=== PATIENT | female | born 1940 | race Caucasian/White ===

== ENCOUNTER 2017-11-01 13:20 | Emergency (ER) | payer MEDICARE, BC ==
--- NOTE | 2017-11-01 13:52 | EDM.PDOC ---
ED HPI GENERAL MEDICAL PROBLEM - General Chief Complaint: Respiratory Problem Stated Complaint: [id number] UPPER RESP PROBLEMS Time Seen by Provider: 11/01/17 13:52 Source of Information: Reports: Patient, RN, RN Notes Reviewed History Limitations: Reports: No Limitations - History of Present Illness INITIAL COMMENTS - FREE TEXT/NARRATIVE: C/O congestion with sinus pain and pressure x1 week. Not improving with OTC medications. Admits to dry cough and sensation of postnasal drip. Denies fever, but feels flushed at times. Denies shortness of breath. Onset: Gradual Duration: Constant, Getting Worse Location: Reports: Head, Face Quality: Reports: Ache, Pressure Severity: Moderate Improves with: Reports: None Worsens with: Reports: None Associated Symptoms: Reports: No Other Symptoms Treatments [employer]: Reports: Acetaminophen, Home Treatments, Other Medication(s) - Related Data Allergies Allergy/AdvReac Type Severity Reaction Status Date / Time No Known Allergies Allergy Verified 11/01/17 13:38 Home Meds: Home Meds Clopidogrel Bisulfate [Clopidogrel] 75 mg PO DAILY 11/01/17 [History] Escitalopram [Lexapro] 20 mg PO DAILY 11/01/17 [History] Levothyroxine [Synthroid] 50 mcg PO DAILY 11/01/17 [History] Losartan/Hydrochlorothiazide [Losartan-HCTZ 100-12.5 MG] 1 tab PO DAILY [History] Omeprazole [Omeprazole] 20 mg PO DAILY 11/01/17 [History] Rosuvastatin Calcium [Rosuvastatin Calcium] 15 mg PO QID 11/01/17 [History] Zolpidem Tartrate [Zolpidem Tartrate] 5 mg PO BEDTIME 11/01/17 [History] Past Medical History Cardiovascular History: Reports: CAD, High Cholesterol, Hypertension Gastrointestinal History: Reports: GERD Endocrine/Metabolic History: Reports: Hypothyroidism Social & Family History - Family History Family Medical History: Noncontributory - Tobacco Use Smoking Status *Q: Current Every Day Smoker Years of Tobacco use: 40 Packs/Tins Daily: 0.5 - Caffeine Use Caffeine Use: Reports: Soda - Alcohol Use Days Per Week of Alcohol Use: 7 Number of Drinks Per Day: 1 Total Drinks Per Week: 7 - Recreational Drug Use Recreational Drug Use: No - Living Situation & Occupation Occupation: Retired ED ROS GENERAL - Review of Systems Review Of Systems: ROS reveals no pertinent complaints other than HPI. ED EXAM, GENERAL - Physical Exam Exam: See Below Exam Limited By: No Limitations General Appearance: Alert, WD/WN, No Apparent Distress Eye Exam: Bilateral Eye: EOMI, Normal Inspection, PERRL Ears: Normal External Exam, Normal Canal, Hearing Grossly Normal, Other (dull TMs B/L) Nose: Nasal Drainage (injected tubinates, inflammed nasal mucosa, thich purulent sinus drainage) Head: Sinus Tenderness (B/L frontal and maxillary) Neck: Normal Inspection, Supple, Non-Tender, Full Range of Motion. No: Lymphadenopathy (L), Lymphadenopathy (R) Respiratory/Chest: No Respiratory Distress, Lungs Clear, Normal Breath Sounds, No Accessory Muscle Use, Chest Non-Tender, Other (dry cough, mild). No: Rales, Rhonchi, Wheezing Cardiovascular: Normal Peripheral Pulses, Regular Rate, Rhythm, No Edema, No Gallop, No JVD, No Murmur, No Rub Back Exam: Normal Inspection Extremities: Normal Inspection, Non-Tender, No Pedal Edema Neurological: Alert, Oriented, CN II-XII Intact, Normal Cognition, Normal Gait, No Motor/Sensory Deficits Skin Exam: Warm, Dry, Intact, Normal Color, No Rash Course - Vital Signs Last Recorded V/S: Last Vital Signs Temp 35.9 C 11/01/17 13:35 Pulse 79 11/01/17 13:35 Resp 16 11/01/17 13:35 BP 126/65 11/01/17 13:35 Pulse Ox 99 11/01/17 13:35 Departure - Departure Time of Disposition: 14:14 Disposition: Home, Self-Care 01 Condition: Good Clinical Impression: Sinusitis Qualifiers: Sinusitis location: unspecified location Chronicity: acute Recurrence: non- recurrent Qualified Code(s): J01.90 - Acute sinusitis, unspecified - Discharge Information Instructions: Sinusitis, Adult, [id number] Forms: ED Department Discharge Additional Instructions: Use saline nasal spray until symptoms completely improve. Saltwater gargles as needed for sore throat or postnasal drip. Follow up in clinic if not improved in 5 to 7 days.
== END 2017-11-01 14:23 | disposition home or self-care (01) ==
LOC: DL.ED 13:20
DX: J01.90 Acute sinusitis, unspecified (principal); I10 Essential (primary) hypertension; I25.10 Atherosclerotic heart disease of native coronary artery without angina pectoris; E78.00 Pure hypercholesterolemia, unspecified; K21.9 Gastro-esophageal reflux disease without esophagitis; E03.9 Hypothyroidism, unspecified; F17.210 Nicotine dependence, cigarettes, uncomplicated; Z79.899 Other long term (current) drug therapy; Z79.02 Long term (current) use of antithrombotics/antiplatelets
CPT/HCPCS: 99282; 99283

== ENCOUNTER 2021-11-02 14:16 | Inpatient (IN) | payer MEDICARE, BC ==
[2021-11-02 15:30] LABS: CORONAVIRUS COVID-19 NAA NEGATIVE (NEGATIVE)
[2021-11-02] MEDS ORDERED: methylPREDNISolone Sodium Succinate 125 MG/2 ML SDV IVPUSH ONE (16:47)
[2021-11-02] MEDS ORDERED: Sodium Chloride 0.9% 10 ML Syringe FLUSH PRN (16:47)
[2021-11-02] MEDS ORDERED: Albuterol/Ipratropium 3.0-0.5 MG/3 ML Neb Soln NEB ONE (16:47)
[2021-11-02 17:49] LABS: PTT,PARTIAL THROMBOPLSTIN TIME 25.6 SEC (22.0-34.0)
[2021-11-02 18:16] LABS: ANION GAP 14.4 mEq/L (7-13); CHLORIDE,CL 102 mmol/L (98-107); SODIUM,NA 140 mmol/L (136-145)
[2021-11-02] MEDS ORDERED: Aspirin 81 MG Tab.Chew PO ONE (18:29)
[2021-11-02] MEDS ORDERED: Heparin Sodium 5,000 Units/ML Vial IVPUSH ONE (18:31)
[2021-11-02] MEDS ORDERED: Heparin Sodium/0.45% NaCl 25,000 UNITS/500 ML BAG IV SCH ×2 (18:45→20:45)
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
--- NOTE | 2021-11-02 18:54 | CR ---
PROCEDURE INFORMATION: Exam: XR Chest Exam date and time: 11/02/2021 6:23 PM Age: 81 years old Clinical indication: Cough; Additional info: Cough, dyspnea TECHNIQUE: Imaging protocol: XR of the chest. Views: 2 views. COMPARISON: No relevant prior studies available. FINDINGS: Airway: Patent Lungs: Unremarkable. No consolidation. Pleural spaces: Unremarkable. No pleural effusion. No pneumothorax. Heart/Mediastinum: Unremarkable. No cardiomegaly. Vasculature: Calcified aortic knob. Bones/joints: No acute skeletal abnormality or aggressive osseous lesion. IMPRESSION: NEGATIVE FOR ACUTE THORACIC PATHOLOGY.
[2021-11-02] MEDS ORDERED: Aspirin 81 MG Tab.Chew ONE ×2 (19:17→19:18)
[2021-11-02] MEDS ORDERED: Nitroglycerin 0.4 MG Tab.SL SL PRN (20:37)
--- NOTE | 2021-11-02 20:58 | PCM.HP ---
H&P History of Present Illness - General Date of Service: 11/02/21 Admit Problem/Dx: Admission Diagnosis/Problem Admission Diagnosis/Problem Non-ST elevation (NSTEMI) myocardial infarction Source of Information: Patient, EMS - History of Present Illness Initial Comments - Free Text/Narative: Patient is a 81-year-old female with a past medical history of CVA, hyperlipidemia, hypothyroidism, anxiety pression, hypertension, prior tobacco use who presented with dyspnea with exertion. Patient states that she is noticed worsening shortness of breath with activity over the last 3 weeks. She states that she went down to see her brother in [place] and noticed ever since that time she has had worsening dyspnea with even mild exertion. States that she had issues with her medications and had not taken her Plavix in 3 weeks. Patient states that she has Plavix from a prior CVA. She denies any chest pains or pressures, denies abdominal pain, nausea or vomiting. Patient states that when she is resting she is overall chest pain-free and is not of any dyspnea. Patient arrived emergency department she is hemodynamically stable. Laboratory studies included a WBC of 10.8, hemoglobin of 14.5, platelet count of 303, normal coagulation studies, sodium 140, potassium 4.4, creatinine 1.14, negative D-dimer. High sensitive troponin I 66. COVID-19 testing was negative. Chest x-ray showed no acute findings. EKG showed sinus tachycardia with right bundle branch block, findings of prior inferior infarct with inverted T waves especially noted in three and aVF, significant inverted T waves in the precordial leads V1 through V4. I do not have a prior to compare. Patient was given a bolus of heparin started heparin drip, given 324 aspirin and request was made for hospitalization for further monitoring of troponins. Patient states that she has a "bad time taking medications ". She currently states that she does not ever sleep laying down and has had maybe worsening of some orthopnea over the last several days. Again denies any current chest pains or pressures, palpitations and states she overall feels well when she is sitting at rest. Denies any fevers or chills. Patient denies any prior cardiac history including stents or NSTEMI's. States he does have a family history of hypertension hyperlipidemia and heart disease. - Related Data Allergies/Adverse Reactions: Allergies Allergy/AdvReac Type Severity Reaction Status Date / Time No Known Allergies Allergy Verified 12/06/17 13:38 Home Medications: Home Meds Clopidogrel Bisulfate [Clopidogrel] 75 mg PO DAILY 11/01/17 [History] Escitalopram [Lexapro] 20 mg PO BID 11/01/17 [History] Levothyroxine [Synthroid] 50 mcg PO DAILY 11/01/17 [History] Losartan/Hydrochlorothiazide [Losartan-HCTZ 100-12.5 MG] 1 tab PO DAILY 11/01/17 [History] Omeprazole 20 mg PO DAILY 11/01/17 [History] Rosuvastatin Calcium 40 mg PO DAILY 11/01/17 [History] Zolpidem Tartrate 5 mg PO BEDTIME 11/01/17 [History] buPROPion HCL [Wellbutrin Xl] 1 tab PO ASDIRECTED 11/02/21 [History] Past Medical History Cardiovascular History: Reports: CAD, High Cholesterol, Hypertension Gastrointestinal History: Reports: GERD Endocrine/Metabolic History: Reports: Hypothyroidism Social & Family History - Family History Family Medical History: No Pertinent Family History - Tobacco Use Tobacco Use Status *Q: Former Tobacco User Used Tobacco, but Quit: Yes Month/Year Tobacco Last Used: 06/2021 - Caffeine Use Caffeine Use: Reports: Soda - Recreational Drug Use Recreational Drug Use: No - Living Situation & Occupation Occupation: Retired H&P Review of Systems - Review of Systems: Review Of Systems: Comprehensive ROS is negative, except as noted in HPI. Exam - Exam Exam: See Below - Vital Signs Vital Signs: Last Vital Signs Temp 97.3 F 11/02/21 19:34 Pulse 78 11/02/21 19:34 Resp 20 11/02/21 19:34 BP 138/87 11/02/21 19:34 Pulse Ox 94 L 11/02/21 19:34 Weight: 186 lb - Exam General: Alert, Oriented HEENT: Conjunctiva Clear, Mucosa Moist & [place], PERRLA Neck: Supple, Trachea Midline Lungs: Clear to Auscultation, Wheezing (very mild end expiratory wheezing) Cardiovascular: Regular Rate, Regular Rhythm, Normal S1, Normal S2 GI/Abdominal Exam: Normal Bowel Sounds, Soft Back Exam: Normal Inspection Extremities: Normal Inspection Peripheral Pulses: 2+: Radial (L), Radial (R) Skin: Warm, Dry, Intact Neurological: Cranial Nerves Intact, Reflexes Equal Bilateral Neuro Extensive - Mental Status: Alert, Oriented x3 - Patient Data Lab Results Last 24 hrs: Laboratory Results - last 24 hr 11/02/21 11/02/21 11/02/21 Range/Units 14:35 17:06 17:06 WBC 10.8 H (5.0-10.0) 10^3/uL RBC 4.65 (4.2-5.4) 10^6/uL Hgb 14.5 (12.0-16.0) g/dL Hct 45.3 (37.0-47.0) % MCV 97.4 (80-100) fL MCH 31.2 (27.0-34.0) pg MCHC 32.0 L (33.0-35.0) g/dL Plt Count 303 (150-450) 10^3/uL Neut % (Auto) 66.9 (42.2-75.2) % Lymph % (Auto) 18.8 L (20.5-50.1) % [place] % (Auto) 7.0 (2-8) % Eos % (Auto) 6.9 H (1.0-3.0) % Baso % (Auto) 0.4 (0.0-1.0) % PT (9.0-12.0) SEC INR (0.9-1.2) APTT (22.0-34.0) SEC D-Dimer, Quantitative 179 (0-400) ng/mL Sodium (136-145) mmol/L Potassium (3.5-5.1) mmol/L Chloride (98-107) mmol/L Carbon Dioxide (21-32) mmol/L Anion Gap (7-13) mEq/L BUN (7-18) mg/dL Creatinine (0.55-1.02) mg/dL Est Cr Clr Drug Dosing Estimated GFR (MDRD) BUN/Creatinine Ratio (No establ ref range) Glucose (70-99) mg/dL Lactic Acid (0.4-2.0) mmol/L Calcium (8.5-10.1) mg/dL Total Bilirubin (0.2-1.0) mg/dL AST (15-37) U/L ALT (14-59) U/L Alkaline Phosphatase (46-116) U/L Troponin I High Sens (<=51) pg/mL B-Natriuretic Peptide (0-100) pg/ml Total Protein (6.4-8.2) g/dL Albumin (3.4-5.0) g/dL Globulin Albumin/Globulin Ratio Influenza Type A RNA Negative (NEGATIVE) Influenza Type B RNA Negative (NEGATIVE) SARS-CoV-2 RNA (CARMELITA) Negative (NEGATIVE) 11/02/21 11/02/21 11/02/21 Range/Units 17:06 17:06 17:06 WBC (5.0-10.0) 10^3/uL RBC (4.2-5.4) 10^6/uL Hgb (12.0-16.0) g/dL Hct (37.0-47.0) % MCV (80-100) fL MCH (27.0-34.0) pg MCHC (33.0-35.0) g/dL Plt Count (150-450) 10^3/uL Neut % (Auto) (42.2-75.2) % Lymph % (Auto) (20.5-50.1) % [place] % (Auto) (2-8) % Eos % (Auto) (1.0-3.0) % Baso % (Auto) (0.0-1.0) % PT 9.9 (9.0-12.0) SEC INR 1.0 (0.9-1.2) APTT 25.6 (22.0-34.0) SEC D-Dimer, Quantitative (0-400) ng/mL Sodium 140 (136-145) mmol/L Potassium 4.4 (3.5-5.1) mmol/L Chloride 102 (98-107) mmol/L Carbon Dioxide 28 (21-32) mmol/L Anion Gap 14.4 H (7-13) mEq/L BUN 20 H (7-18) mg/dL Creatinine 1.14 H (0.55-1.02) mg/dL Est Cr Clr Drug Dosing TNP Estimated GFR (MDRD) 46 BUN/Creatinine Ratio 17.5 (No establ ref range) Glucose 102 H (70-99) mg/dL Lactic Acid 1.1 (0.4-2.0) mmol/L Calcium 9.5 (8.5-10.1) mg/dL Total Bilirubin 0.7 (0.2-1.0) mg/dL AST 27 (15-37) U/L ALT 37 (14-59) U/L Alkaline Phosphatase 87 (46-116) U/L Troponin I High Sens 166 H* (<=51) pg/mL B-Natriuretic Peptide 69 (0-100) pg/ml Total Protein 8.2 (6.4-8.2) g/dL Albumin 4.0 (3.4-5.0) g/dL Globulin 4.2 Albumin/Globulin Ratio 1.0 Influenza Type A RNA (NEGATIVE) Influenza Type B RNA (NEGATIVE) SARS-CoV-2 RNA (CARMELITA) (NEGATIVE) Result Diagrams: 11/02/21 17:06 11/02/21 17:06 - Problem List (1) Anxiety SNOMED Code(s): 92984315 ICD Code: F41.9 - ANXIETY DISORDER, UNSPECIFIED Status: Acute Current Visit: Yes (2) HTN (hypertension) SNOMED Code(s): 78620569 ICD Code: I10 - ESSENTIAL (PRIMARY) HYPERTENSION Status: Acute Current Visit: Yes (3) HLD (hyperlipidemia) SNOMED Code(s): 57212907 ICD Code: E78.5 - HYPERLIPIDEMIA, UNSPECIFIED Status: Acute Current Visit: Yes (4) Hypothyroid SNOMED Code(s): 20233694 ICD Code: E03.9 - HYPOTHYROIDISM, UNSPECIFIED Status: Acute Current Visit: Yes (5) Dyspnea on exertion SNOMED Code(s): 30574202 ICD Code: R06.00 - DYSPNEA, UNSPECIFIED Status: Acute Current Visit: No (6) Non-STEMI (non-ST elevated myocardial infarction) SNOMED Code(s): 88568445 ICD Code: I21.4 - NON-ST ELEVATION (NSTEMI) MYOCARDIAL INFARCTION Status: Acute Current Visit: No Problem List Initiated/Reviewed/Updated: Yes Orders Last 24hrs: Active Orders 24 hr Category Date Time Status Admission Diagnosis [ADT] Stat ADT 11/02/21 19:07 Ordered Admission Status [Patient Status] [ADT] Routine ADT 11/02/21 19:07 Active Cardiac Education [RC] Click to Edit Care 11/02/21 20:37 Active Cardiac Monitoring [RC] . DIRECTED Care 11/02/21 20:37 Active Peripheral IV Care [RC] . DIRECTED Care 11/02/21 16:48 Active RT Aerosol Therapy [RC] ASDIRECTED Care 11/02/21 16:47 Active CULTURE BLOOD [BC] Stat Lab 11/02/21 17:06 Received CULTURE BLOOD [BC] Stat Lab 11/02/21 18:02 Received Aspirin Med 11/03/21 09:00 Ordered 81 mg PO DAILY Heparin Sodium/0.45% NaCl [Heparin 25,000 Units in 1/2 Med 11/02/21 20:45 Ordered NS 500 ML] 25,000 units in 500 ml IV TITRATE Metoprolol Tartrate [Lopressor] Med 11/02/21 20:45 Ordered 25 mg PO Q12H Nitroglycerin [Nitrostat] Med 11/02/21 20:37 Ordered 0.4 mg SL Q5M PRN Sodium Chloride 0.9% [Saline Flush] Med 11/02/21 16:47 Active 10 ml FLUSH ASDIRECTED PRN Blood Culture x2 Reflex Set [OM.PC] Stat Oth 11/02/21 16:46 Ordered Peripheral IV Insertion Adult [OM.PC] Stat Oth 11/02/21 16:47 Ordered Medication Orders Aspirin (Aspirin 81 Mg Tab.Chew) 81 mg PO DAILY ESAU Heparin Sodium/Sodium Chloride (Heparin 25,000 Units In 1/2 Ns 500 Ml) 25,000 units in 500 mls @ 33.747 mls/hr IV TITRATE ESAU; Protocol Metoprolol Tartrate (Metoprolol Tartrate 25 Mg Tab) 25 mg PO Q12H ESAU Nitroglycerin (Nitroglycerin 0.4 Mg Tab.Sl) 0.4 mg SL Q5M PRN PRN Reason: Chest Pain Stop: 11/03/21 20:38 Sodium Chloride (Sodium Chloride 0.9% 10 Ml Syringe) 10 ml FLUSH ASDIRECTED PRN PRN Reason: Keep Vein Open Last Admin: 11/02/21 17:33 Dose: 10 ml Documented by: [email or web address] Assessment/Plan Comment:: Patient is 81-year-old female with a past medical history of prior CVA, hypertension, hyperlipidemia, prior tobacco use who presented with dyspnea with exertion was found to have elevated troponins. # NSTEMI -[place] troponin 166, patient is not having any typical chest pain but is having significant increased dyspnea on exertion. Patient did have a slight elevated white count at 10.8 although no infectious symptoms, patient symptoms most concerning for ischemia -chest x-ray with no concerning findings - negative d dimer -EKG showed concerning findings for ischemia including T wave inversions inferior and precordial leads -Heparin drip, aspirin, metoprolol, PAZ inhibitor, statin -We will trend troponins every 6 hours -Telemetry monitoring, do not of the abilities to obtain a TTE but recommend TTE during admission for evaluation of wall motion abnormalities -N.p.o. midnight #Chronic medical conditions #Anxiety/depressioncontinue Wellbutrin and #Hypertensioncontinue losartan hydrochlorothiazide Fluidsnone Electrolyteswithin normal limits DietGeneral, n.p.o. at midnight
[2021-11-02] MEDS ORDERED: Zolpidem 5 MG Tab PO SCH (21:15)
[2021-11-02] MEDS: Metoprolol Tartrate 25 MG Tab PO SCH (22:44)
--- NOTE | 2021-11-03 00:25 | PCM.PN ---
- General Info Date of Service: 11/03/21 Admission Dx/Problem (Free Text): Admission Diagnosis/Problem Admission Diagnosis/Problem Non-ST elevation (NSTEMI) myocardial infarction Subjective Update: Patient states that she overall feels stable. Denies any dyspnea while lying down but still some dyspnea with exertion when walking around. Denies any chest pains, arm pain, jaw pain. Denies any nausea, vomiting, diaphoresis. States that she would accept transfer and is open to further testing including an angiogram. Review systems is negative except as listed above. Functional Status: Reports: Pain Controlled - Patient Data Vitals - Most Recent: Last Vital Signs Temp 97.6 F 11/02/21 20:23 Pulse 77 11/02/21 22:44 Resp 18 11/02/21 20:23 BP 147/77 H 11/02/21 22:44 Pulse Ox 98 11/02/21 20:23 Weight - Most Recent: 188 lb 1.6 oz Lab Results Last 24 Hours: Laboratory Results - last 24 hr 11/02/21 11/02/21 11/02/21 Range/Units 14:35 17:06 17:06 WBC 10.8 H (5.0-10.0) 10^3/uL RBC 4.65 (4.2-5.4) 10^6/uL Hgb 14.5 (12.0-16.0) g/dL Hct 45.3 (37.0-47.0) % MCV 97.4 (80-100) fL MCH 31.2 (27.0-34.0) pg MCHC 32.0 L (33.0-35.0) g/dL Plt Count 303 (150-450) 10^3/uL Neut % (Auto) 66.9 (42.2-75.2) % Lymph % (Auto) 18.8 L (20.5-50.1) % [place] % (Auto) 7.0 (2-8) % Eos % (Auto) 6.9 H (1.0-3.0) % Baso % (Auto) 0.4 (0.0-1.0) % PT (9.0-12.0) SEC INR (0.9-1.2) APTT (22.0-34.0) SEC D-Dimer, Quantitative 179 (0-400) ng/mL Sodium (136-145) mmol/L Potassium (3.5-5.1) mmol/L Chloride (98-107) mmol/L Carbon Dioxide (21-32) mmol/L Anion Gap (7-13) mEq/L BUN (7-18) mg/dL Creatinine (0.55-1.02) mg/dL Est Cr Clr Drug Dosing Estimated GFR (MDRD) BUN/Creatinine Ratio (No establ ref range) Glucose (70-99) mg/dL Lactic Acid (0.4-2.0) mmol/L Calcium (8.5-10.1) mg/dL Total Bilirubin (0.2-1.0) mg/dL AST (15-37) U/L ALT (14-59) U/L Alkaline Phosphatase (46-116) U/L Troponin I High Sens (<=51) pg/mL B-Natriuretic Peptide (0-100) pg/ml Total Protein (6.4-8.2) g/dL Albumin (3.4-5.0) g/dL Globulin Albumin/Globulin Ratio Influenza Type A RNA Negative (NEGATIVE) Influenza Type B RNA Negative (NEGATIVE) SARS-CoV-2 RNA (CARMELITA) Negative (NEGATIVE) 11/02/21 11/02/21 11/02/21 Range/Units 17:06 17:06 17:06 WBC (5.0-10.0) 10^3/uL RBC (4.2-5.4) 10^6/uL Hgb (12.0-16.0) g/dL Hct (37.0-47.0) % MCV (80-100) fL MCH (27.0-34.0) pg MCHC (33.0-35.0) g/dL Plt Count (150-450) 10^3/uL Neut % (Auto) (42.2-75.2) % Lymph % (Auto) (20.5-50.1) % [place] % (Auto) (2-8) % Eos % (Auto) (1.0-3.0) % Baso % (Auto) (0.0-1.0) % PT 9.9 (9.0-12.0) SEC INR 1.0 (0.9-1.2) APTT 25.6 (22.0-34.0) SEC D-Dimer, Quantitative (0-400) ng/mL Sodium 140 (136-145) mmol/L Potassium 4.4 (3.5-5.1) mmol/L Chloride 102 (98-107) mmol/L Carbon Dioxide 28 (21-32) mmol/L Anion Gap 14.4 H (7-13) mEq/L BUN 20 H (7-18) mg/dL Creatinine 1.14 H (0.55-1.02) mg/dL Est Cr Clr Drug Dosing TNP Estimated GFR (MDRD) 46 BUN/Creatinine Ratio 17.5 (No establ ref range) Glucose 102 H (70-99) mg/dL Lactic Acid 1.1 (0.4-2.0) mmol/L Calcium 9.5 (8.5-10.1) mg/dL Total Bilirubin 0.7 (0.2-1.0) mg/dL AST 27 (15-37) U/L ALT 37 (14-59) U/L Alkaline Phosphatase 87 (46-116) U/L Troponin I High Sens 166 H* (<=51) pg/mL B-Natriuretic Peptide 69 (0-100) pg/ml Total Protein 8.2 (6.4-8.2) g/dL Albumin 4.0 (3.4-5.0) g/dL Globulin 4.2 Albumin/Globulin Ratio 1.0 Influenza Type A RNA (NEGATIVE) Influenza Type B RNA (NEGATIVE) SARS-CoV-2 RNA (CARMELITA) (NEGATIVE) 11/02/21 Range/Units 23:10 WBC (5.0-10.0) 10^3/uL RBC (4.2-5.4) 10^6/uL Hgb (12.0-16.0) g/dL Hct (37.0-47.0) % MCV (80-100) fL MCH (27.0-34.0) pg MCHC (33.0-35.0) g/dL Plt Count (150-450) 10^3/uL Neut % (Auto) (42.2-75.2) % Lymph % (Auto) (20.5-50.1) % [place] % (Auto) (2-8) % Eos % (Auto) (1.0-3.0) % Baso % (Auto) (0.0-1.0) % PT (9.0-12.0) SEC INR (0.9-1.2) APTT (22.0-34.0) SEC D-Dimer, Quantitative (0-400) ng/mL Sodium (136-145) mmol/L Potassium (3.5-5.1) mmol/L Chloride (98-107) mmol/L Carbon Dioxide (21-32) mmol/L Anion Gap (7-13) mEq/L BUN (7-18) mg/dL Creatinine (0.55-1.02) mg/dL Est Cr Clr Drug Dosing Estimated GFR (MDRD) BUN/Creatinine Ratio (No establ ref range) Glucose (70-99) mg/dL Lactic Acid (0.4-2.0) mmol/L Calcium (8.5-10.1) mg/dL Total Bilirubin (0.2-1.0) mg/dL AST (15-37) U/L ALT (14-59) U/L Alkaline Phosphatase (46-116) U/L Troponin I High Sens 161 H* (<=51) pg/mL B-Natriuretic Peptide (0-100) pg/ml Total Protein (6.4-8.2) g/dL Albumin (3.4-5.0) g/dL Globulin Albumin/Globulin Ratio Influenza Type A RNA (NEGATIVE) Influenza Type B RNA (NEGATIVE) SARS-CoV-2 RNA (CARMELITA) (NEGATIVE) Med Orders - Current: Current Medications Aspirin (Aspirin 81 Mg Tab.Chew) 81 mg PO DAILY [facility] Bupropion HCl (Bupropion 150 Mg Tab.Er) 150 mg PO SuTuThSa@0900 [facility] Bupropion HCl (Bupropion 150 Mg Tab.Er) 300 mg PO MoWeFr@0900 [facility] Escitalopram Oxalate (Escitalopram 10 Mg Tab) 20 mg PO BID [facility] Hydrochlorothiazide (Hydrochlorothiazide 25 Mg Tab) 12.5 mg PO DAILY [facility] Heparin Sodium/Sodium Chloride (Heparin 25,000 Units In 1/2 Ns 500 Ml) 25,000 units in 500 mls @ 33.747 mls/hr IV TITRATE ESAU; Protocol Levothyroxine Sodium (Levothyroxine 50 Mcg Tab) 50 mcg PO ACBREAKFAST [facility] Losartan Potassium (Losartan 50 Mg Tab) 100 mg PO DAILY [facility] Metoprolol Tartrate (Metoprolol Tartrate 25 Mg Tab) 25 mg PO Q12H ESAU Last Admin: 11/02/21 22:44 Dose: 25 mg Documented by: Nitroglycerin (Nitroglycerin 0.4 Mg Tab.Sl) 0.4 mg SL Q5M PRN PRN Reason: Chest Pain Stop: 11/03/21 20:38 Omeprazole (Omeprazole 20 Mg Cap.Cr) 20 mg PO DAILY E[facility] Rosuvastatin Calcium (Rosuvastatin 10 Mg Tab) 40 mg PO DAILY [facility] Sodium Chloride (Sodium Chloride 0.9% 10 Ml Syringe) 10 ml FLUSH ASDIRECTED PRN PRN Reason: Keep Vein Open Last Admin: 11/02/21 17:33 Dose: 10 ml Documented by: Zolpidem Tartrate (Zolpidem 5 Mg Tab) 5 mg PO BEDTIME [facility] Last Admin: 11/02/21 22:44 Dose: 5 mg Documented by: Discontinued Medications Albuterol/Ipratropium (Albuterol/Ipratropium 3.0-0.5 Mg/3 Ml Neb Soln) 3 ml NEB ONETIME ONE Stop: 11/02/21 16:48 Last Admin: 11/02/21 17:13 Dose: 3 ml Documented by: Aspirin (Aspirin 81 Mg Tab.Chew) 324 mg PO ONETIME ONE Stop: 11/02/21 18:30 Last Admin: 11/02/21 19:20 Dose: 324 mg Documented by: Aspirin (Aspirin 81 Mg Tab.Chew) Confirm Administered Dose 324 mg .ROUTE .STK- MED ONE Stop: 11/02/21 19:18 Last Admin: 11/02/21 19:38 Dose: Not Given Documented by: Aspirin (Aspirin 81 Mg Tab.Chew) Confirm Administered Dose 324 mg .ROUTE .STK- MED ONE Stop: 11/02/21 19:19 Last Admin: 11/02/21 19:38 Dose: Not Given Documented by: Heparin Sodium (Porcine) (Heparin Sodium 5,000 Units/Ml Vial) 60 units IVPUSH .BOLUS ONE; Protocol Stop: 11/02/21 18:32 Last Admin: 11/02/21 19:28 Dose: 4,000 units Documented by: Heparin Sodium/Sodium Chloride (Heparin 25,000 Units In 1/2 Ns 500 Ml) 25,000 units in 500 mls @ 20 mls/hr IV TITRATE ESAU; Protocol Last Admin: 11/02/21 19:28 Dose: 20.2 mls/hr Documented by: Methylprednisolone Sodium Succinate (Methylprednisolone Sodium Succinate 125 Mg/2 Ml Sdv) 125 mg IVPUSH ONETIME ONE Stop: 11/02/21 16:48 Last Admin: 11/02/21 17:33 Dose: 125 mg Documented by: Zolpidem Tartrate (Zolpidem 5 Mg Tab) 5 mg PO BEDTIME ESAU - Exam General: Alert, Oriented HEENT: Pupils Equal, Pupils Reactive Neck: Supple Lungs: Normal Respiratory Effort Cardiovascular: Regular Rate, Regular Rhythm GI/Abdominal Exam: Normal Bowel Sounds, Soft Extremities: Normal Inspection Peripheral Pulses: 2+: Radial (L), Radial (R) Skin: Warm, Dry Wound/Incisions: Healing Well Neurological: No New Focal Deficit Psy/Mental Status: Alert, Normal Affect - Patient Data Lab Results Last 24 hrs: Laboratory Results - last 24 hr 11/02/21 11/02/21 11/02/21 Range/Units 14:35 17:06 17:06 WBC 10.8 H (5.0-10.0) 10^3/uL RBC 4.65 (4.2-5.4) 10^6/uL Hgb 14.5 (12.0-16.0) g/dL Hct 45.3 (37.0-47.0) % MCV 97.4 (80-100) fL MCH 31.2 (27.0-34.0) pg MCHC 32.0 L (33.0-35.0) g/dL Plt Count 303 (150-450) 10^3/uL Neut % (Auto) 66.9 (42.2-75.2) % Lymph % (Auto) 18.8 L (20.5-50.1) % [place] % (Auto) 7.0 (2-8) % Eos % (Auto) 6.9 H (1.0-3.0) % Baso % (Auto) 0.4 (0.0-1.0) % PT (9.0-12.0) SEC INR (0.9-1.2) APTT (22.0-34.0) SEC D-Dimer, Quantitative 179 (0-400) ng/mL Sodium (136-145) mmol/L Potassium (3.5-5.1) mmol/L Chloride (98-107) mmol/L Carbon Dioxide (21-32) mmol/L Anion Gap (7-13) mEq/L BUN (7-18) mg/dL Creatinine (0.55-1.02) mg/dL Est Cr Clr Drug Dosing Estimated GFR (MDRD) BUN/Creatinine Ratio (No establ ref range) Glucose (70-99) mg/dL Lactic Acid (0.4-2.0) mmol/L Calcium (8.5-10.1) mg/dL Total Bilirubin (0.2-1.0) mg/dL AST (15-37) U/L ALT (14-59) U/L Alkaline Phosphatase (46-116) U/L Troponin I High Sens (<=51) pg/mL B-Natriuretic Peptide (0-100) pg/ml Total Protein (6.4-8.2) g/dL Albumin (3.4-5.0) g/dL Globulin Albumin/Globulin Ratio Influenza Type A RNA Negative (NEGATIVE) Influenza Type B RNA Negative (NEGATIVE) SARS-CoV-2 RNA (CARMELITA) Negative (NEGATIVE) 11/02/21 11/02/21 11/02/21 Range/Units 17:06 17:06 17:06 WBC (5.0-10.0) 10^3/uL RBC (4.2-5.4) 10^6/uL Hgb (12.0-16.0) g/dL Hct (37.0-47.0) % MCV (80-100) fL MCH (27.0-34.0) pg MCHC (33.0-35.0) g/dL Plt Count (150-450) 10^3/uL Neut % (Auto) (42.2-75.2) % Lymph % (Auto) (20.5-50.1) % [place] % (Auto) (2-8) % Eos % (Auto) (1.0-3.0) % Baso % (Auto) (0.0-1.0) % PT 9.9 (9.0-12.0) SEC INR 1.0 (0.9-1.2) APTT 25.6 (22.0-34.0) SEC D-Dimer, Quantitative (0-400) ng/mL Sodium 140 (136-145) mmol/L Potassium 4.4 (3.5-5.1) mmol/L Chloride 102 (98-107) mmol/L Carbon Dioxide 28 (21-32) mmol/L Anion Gap 14.4 H (7-13) mEq/L BUN 20 H (7-18) mg/dL Creatinine 1.14 H (0.55-1.02) mg/dL Est Cr Clr Drug Dosing TNP Estimated GFR (MDRD) 46 BUN/Creatinine Ratio 17.5 (No establ ref range) Glucose 102 H (70-99) mg/dL Lactic Acid 1.1 (0.4-2.0) mmol/L Calcium 9.5 (8.5-10.1) mg/dL Total Bilirubin 0.7 (0.2-1.0) mg/dL AST 27 (15-37) U/L ALT 37 (14-59) U/L Alkaline Phosphatase 87 (46-116) U/L Troponin I High Sens 166 H* (<=51) pg/mL B-Natriuretic Peptide 69 (0-100) pg/ml Total Protein 8.2 (6.4-8.2) g/dL Albumin 4.0 (3.4-5.0) g/dL Globulin 4.2 Albumin/Globulin Ratio 1.0 Influenza Type A RNA (NEGATIVE) Influenza Type B RNA (NEGATIVE) SARS-CoV-2 RNA (CARMELITA) (NEGATIVE) 11/02/21 Range/Units 23:10 WBC (5.0-10.0) 10^3/uL RBC (4.2-5.4) 10^6/uL Hgb (12.0-16.0) g/dL Hct (37.0-47.0) % MCV (80-100) fL MCH (27.0-34.0) pg MCHC (33.0-35.0) g/dL Plt Count (150-450) 10^3/uL Neut % (Auto) (42.2-75.2) % Lymph % (Auto) (20.5-50.1) % [place] % (Auto) (2-8) % Eos % (Auto) (1.0-3.0) % Baso % (Auto) (0.0-1.0) % PT (9.0-12.0) SEC INR (0.9-1.2) APTT (22.0-34.0) SEC D-Dimer, Quantitative (0-400) ng/mL Sodium (136-145) mmol/L Potassium (3.5-5.1) mmol/L Chloride (98-107) mmol/L Carbon Dioxide (21-32) mmol/L Anion Gap (7-13) mEq/L BUN (7-18) mg/dL Creatinine (0.55-1.02) mg/dL Est Cr Clr Drug Dosing Estimated GFR (MDRD) BUN/Creatinine Ratio (No establ ref range) Glucose (70-99) mg/dL Lactic Acid (0.4-2.0) mmol/L Calcium (8.5-10.1) mg/dL Total Bilirubin (0.2-1.0) mg/dL AST (15-37) U/L ALT (14-59) U/L Alkaline Phosphatase (46-116) U/L Troponin I High Sens 161 H* (<=51) pg/mL B-Natriuretic Peptide (0-100) pg/ml Total Protein (6.4-8.2) g/dL Albumin (3.4-5.0) g/dL Globulin Albumin/Globulin Ratio Influenza Type A RNA (NEGATIVE) Influenza Type B RNA (NEGATIVE) SARS-CoV-2 RNA (CARMELITA) (NEGATIVE) Result Diagrams: 11/02/21 17:06 11/02/21 17:06 Sepsis Event Note - Evaluation Sepsis Screening Result: No Definite Risk - Focused Exam Vital Signs: Vital Signs Temp Pulse Pulse Resp BP BP Pulse Ox 11/02/21 22:44 77 147/77 H 11/02/21 20:23 97.6 F 77 18 147/77 H 98 11/02/21 19:34 97.3 F 78 20 138/87 94 L 11/02/21 17:13 72 11/02/21 14:35 90 22 H 93 L - Problem List & Annotations (1) Anxiety SNOMED Code(s): 19344447 Code(s): F41.9 - ANXIETY DISORDER, UNSPECIFIED Status: Acute Current Visit: Yes (2) HTN (hypertension) SNOMED Code(s): 35541298 Code(s): I10 - ESSENTIAL (PRIMARY) HYPERTENSION Status: Acute Current Visit: Yes (3) HLD (hyperlipidemia) SNOMED Code(s): 83553549 Code(s): E78.5 - HYPERLIPIDEMIA, UNSPECIFIED Status: Acute Current Visit: Yes (4) Hypothyroid SNOMED Code(s): 35540447 Code(s): E03.9 - HYPOTHYROIDISM, UNSPECIFIED Status: Acute Current Visit: Yes (5) Dyspnea on exertion SNOMED Code(s): 45541247 Code(s): R06.00 - DYSPNEA, UNSPECIFIED Status: Acute Current Visit: No (6) Non-STEMI (non-ST elevated myocardial infarction) SNOMED Code(s): 07062210 Code(s): I21.4 - NON-ST ELEVATION (NSTEMI) MYOCARDIAL INFARCTION Status: Acute Current Visit: No - Problem List Review Problem List Initiated/Reviewed/Updated: Yes - My Orders Last 24 Hours: My Active Orders 11/02/21 20:37 Cardiac Education [RC] Click to Edit Cardiac Monitoring [RC] . DIRECTED Nitroglycerin [Nitrostat] 0.4 mg SL Q5M PRN 11/02/21 20:45 Heparin Sodium/0.45% NaCl [Heparin 25,000 Units in 1/2 NS 500 ML] 25,000 units in 500 ml IV TITRATE Metoprolol Tartrate [Lopressor] 25 mg PO Q12H 11/02/21 21:15 Zolpidem [Ambien] 5 mg PO BEDTIME 11/03/21 01:30 PTT,PARTIAL THROMBOPLSTIN TIME [COAG] Routine 11/03/21 05:00 TROPONIN I HIGH SENSITIVITY [CHEM] Routine 11/03/21 06:00 Levothyroxine [Synthroid] 50 mcg PO ACBREAKFAST 11/03/21 09:00 Aspirin 81 mg PO DAILY Escitalopram [Lexapro] 20 mg PO BID Losartan [Cozaar] 100 mg PO DAILY Omeprazole 20 mg PO DAILY Rosuvastatin [Crestor] 40 mg PO DAILY buPROPion [Wellbutrin XL] 300 mg PO MoWeFr@0900 hydroCHLOROthiazide 12.5 mg PO DAILY 11/04/21 09:00 buPROPion [Wellbutrin XL] 150 mg PO SuTuThSa@0900 - Plan Plan:: Patient is 81-year-old female with a past medical history of prior CVA, hypertension, hyperlipidemia, prior tobacco use who presented with dyspnea with exertion was found to have elevated troponins. # NSTEMI -[place] troponin 166, patient is not having any typical chest pain but is having significant increased dyspnea on exertion. Patient did have a slight elevated white count at 10.8 although no infectious symptoms, patient symptoms most concerning for ischemia -chest x-ray with no concerning findings - negative d dimer -EKG showed concerning findings for ischemia including T wave inversions inferior and precordial leads -Heparin drip, aspirin, metoprolol, PAZ inhibitor, statin -High-sensitivity troponin [id number], discussion had with cardiology at [place] who recommended transfer for TTE and possible coronary angiogram -N.p.o. #Chronic medical conditions #Anxiety/depressioncontinue Wellbutrin and #Hypertensioncontinue losartan hydrochlorothiazide Fluidsnone Electrolyteswithin normal limits DietGeneral, n.p.o. Patient to transfer to outside facility for cardiology consultation.
[2021-11-03] MEDS ORDERED: Levothyroxine 50 MCG Tab PO SCH (06:00)
[2021-11-03] MEDS ORDERED: Losartan 50 MG Tab PO SCH (09:00)
[2021-11-03] MEDS ORDERED: Aspirin 81 MG Tab.Chew PO SCH (09:00)
[2021-11-03] MEDS ORDERED: buPROPion 150 MG Tab.ER PO SCH (09:00)
[2021-11-03] MEDS ORDERED: Omeprazole 20 MG Cap.CR PO SCH (09:00)
[2021-11-03] MEDS ORDERED: Hydrochlorothiazide 25 MG Tab PO SCH (09:00)
[2021-11-03] MEDS ORDERED: Escitalopram 10 MG Tab PO SCH (09:00)
[2021-11-03] MEDS ORDERED: Rosuvastatin 10 MG Tab PO SCH (09:00)
[2021-11-03] MEDS: Metoprolol Tartrate 25 MG Tab PO SCH (09:33)
--- NOTE | 2021-11-03 10:30 | PCM.DCSUM1 ---
Discharge Summary - Hospital Course Free Text/Narrative:: Patient is a 81-year-old female with a past medical history of CVA, hyperlipidemia, hypothyroidism, anxiety pression, hypertension, prior tobacco use who presented with dyspnea with exertion. Patient states that she is noticed worsening shortness of breath with activity over the last 3 weeks. She states that she went down to see her brother in [place] and noticed ever since that time she has had worsening dyspnea with even mild exertion. States that she had issues with her medications and had not taken her Plavix in 3 weeks. Patient states that she has Plavix from a prior CVA. She denies any chest pains or pressures, denies abdominal pain, nausea or vomiting. Patient states that when she is resting she is overall chest pain-free and is not of any dyspnea. Patient arrived emergency department she is hemodynamically stable. Laboratory studies included a WBC of 10.8, hemoglobin of 14.5, platelet count of 303, normal coagulation studies, sodium 140, potassium 4.4, creatinine 1.14, negative D-dimer. High sensitive troponin I 66. COVID-19 testing was negative. Chest x-ray showed no acute findings. EKG showed sinus tachycardia with right bundle branch block, findings of prior inferior infarct with inverted T waves especially noted in three and aVF, significant inverted T waves in the precordial leads V1 through V4. I do not have a prior to compare. Patient was given a bolus of heparin started heparin drip, given 324 aspirin and request was made for hospitalization for further monitoring of troponins. Patient states that she has a "bad time taking medications ". She currently states that she does not ever sleep laying down and has had maybe worsening of some orthopnea over the last several days. Again denies any current chest pains or pressures, palpitations and states she overall feels well when she is sitting at rest. Denies any fevers or chills. Patient denies any prior cardiac history including stents or NSTEMI's. States he does have a family history of hypertension hyperlipidemia and heart disease. Patient was admitted for further evaluation was placed on guideline directed therapy with a heparin drip, PAZ inhibitor, statin, beta-tiffayn, aspirin. Patient was monitored on telemetry and had no arrhythmias. Patient continued to have dyspnea with exertion but no chest pains or pressures, no dyspnea at rest. High-sensitivity troponin was trended and was 1 66-1 61-1 37. Given that patient still having dyspnea with exertion and her findings of NSTEMI discussion was had with line construction engineer at [facility] Dr. Taylor who recommended transfer for TTE and possible coronary angiogram. He also recommended admission through the emergency department. Discussions had with emergency room physician Jesus Lamar who acce will transfer patient via ALS with heparin drip and cardiac monitoring. Patient was medically stable at time of transfer. - Discharge Data Discharge Date: 11/03/21 Discharge Disposition: DC/Tfer to Acute Hospital 02 Condition: Stable - Referral to Home Health Primary Care Physician: PCP None - Discharge Diagnosis/Problem(s) (1) Anxiety SNOMED Code(s): 49877533 ICD Code: F41.9 - ANXIETY DISORDER, UNSPECIFIED Status: Acute Current Visit: Yes (2) HTN (hypertension) SNOMED Code(s): 84785557 ICD Code: I10 - ESSENTIAL (PRIMARY) HYPERTENSION Status: Acute Current Visit: Yes (3) HLD (hyperlipidemia) SNOMED Code(s): 77653080 ICD Code: E78.5 - HYPERLIPIDEMIA, UNSPECIFIED Status: Acute Current Visit: Yes (4) Hypothyroid SNOMED Code(s): 24924453 ICD Code: E03.9 - HYPOTHYROIDISM, UNSPECIFIED Status: Acute Current Visit: Yes (5) Dyspnea on exertion SNOMED Code(s): 59307850 ICD Code: R06.00 - DYSPNEA, UNSPECIFIED Status: Acute Current Visit: No (6) Non-STEMI (non-ST elevated myocardial infarction) SNOMED Code(s): 88399312 ICD Code: I21.4 - NON-ST ELEVATION (NSTEMI) MYOCARDIAL INFARCTION Status: Acute Current Visit: No - Patient Instructions Diet: NPO - Discharge Plan *PRESCRIPTION DRUG MONITORING PROGRAM REVIEWED*: Not Applicable *COPY OF PRESCRIPTION DRUG MONITORING REPORT IN PATIENT MIKEY: Not Applicable Home Medications: Home Meds Clopidogrel Bisulfate [Clopidogrel] 75 mg PO DAILY 11/01/17 [History] Escitalopram [Lexapro] 20 mg PO BID 11/01/17 [History] Levothyroxine [Synthroid] 50 mcg PO DAILY 11/01/17 [History] Losartan/Hydrochlorothiazide [Losartan-HCTZ 100-12.5 MG] 1 tab PO DAILY 11/01/17 [History] Omeprazole 20 mg PO DAILY 11/01/17 [History] Rosuvastatin Calcium 40 mg PO DAILY 11/01/17 [History] Zolpidem Tartrate 5 mg PO BEDTIME 11/01/17 [History] buPROPion HCL [Wellbutrin Xl] 1 tab PO ASDIRECTED 11/02/21 [History] Forms: ED Department Discharge Referrals: PCP,None [Primary Care Provider] - - Discharge Summary/Plan Comment DC Time >30 min.: Yes Total # of Minutes for Discharge Time: 30 minutes - Patient Data Vitals - Most Recent: Last Vital Signs Temp 98.1 F 11/03/21 08:08 Pulse 64 11/03/21 09:33 Resp 20 11/03/21 08:08 BP 132/86 11/03/21 09:33 Pulse Ox 93 L 11/03/21 08:08 Weight - Most Recent: 188 lb 1.6 oz Lab Results - Last 24 hrs: Laboratory Results - last 24 hr 11/02/21 11/02/21 11/02/21 Range/Units 14:35 17:06 17:06 WBC 10.8 H (5.0-10.0) 10^3/uL RBC 4.65 (4.2-5.4) 10^6/uL Hgb 14.5 (12.0-16.0) g/dL Hct 45.3 (37.0-47.0) % MCV 97.4 (80-100) fL MCH 31.2 (27.0-34.0) pg MCHC 32.0 L (33.0-35.0) g/dL Plt Count 303 (150-450) 10^3/uL Neut % (Auto) 66.9 (42.2-75.2) % Lymph % (Auto) 18.8 L (20.5-50.1) % [place] % (Auto) 7.0 (2-8) % Eos % (Auto) 6.9 H (1.0-3.0) % Baso % (Auto) 0.4 (0.0-1.0) % PT (9.0-12.0) SEC INR (0.9-1.2) APTT (22.0-34.0) SEC D-Dimer, Quantitative 179 (0-400) ng/mL Sodium (136-145) mmol/L Potassium (3.5-5.1) mmol/L Chloride (98-107) mmol/L Carbon Dioxide (21-32) mmol/L Anion Gap (7-13) mEq/L BUN (7-18) mg/dL Creatinine (0.55-1.02) mg/dL Est Cr Clr Drug Dosing Estimated GFR (MDRD) BUN/Creatinine Ratio (No establ ref range) Glucose (70-99) mg/dL Lactic Acid (0.4-2.0) mmol/L Calcium (8.5-10.1) mg/dL Total Bilirubin (0.2-1.0) mg/dL AST (15-37) U/L ALT (14-59) U/L Alkaline Phosphatase (46-116) U/L Troponin I High Sens (<=51) pg/mL B-Natriuretic Peptide (0-100) pg/ml Total Protein (6.4-8.2) g/dL Albumin (3.4-5.0) g/dL Globulin Albumin/Globulin Ratio Influenza Type A RNA Negative (NEGATIVE) Influenza Type B RNA Negative (NEGATIVE) SARS-CoV-2 RNA (CARMELITA) Negative (NEGATIVE) 11/02/21 11/02/21 11/02/21 Range/Units 17:06 17:06 17:06 WBC (5.0-10.0) 10^3/uL RBC (4.2-5.4) 10^6/uL Hgb (12.0-16.0) g/dL Hct (37.0-47.0) % MCV (80-100) fL MCH (27.0-34.0) pg MCHC (33.0-35.0) g/dL Plt Count (150-450) 10^3/uL Neut % (Auto) (42.2-75.2) % Lymph % (Auto) (20.5-50.1) % [place] % (Auto) (2-8) % Eos % (Auto) (1.0-3.0) % Baso % (Auto) (0.0-1.0) % PT 9.9 (9.0-12.0) SEC INR 1.0 (0.9-1.2) APTT 25.6 (22.0-34.0) SEC D-Dimer, Quantitative (0-400) ng/mL Sodium 140 (136-145) mmol/L Potassium 4.4 (3.5-5.1) mmol/L Chloride 102 (98-107) mmol/L Carbon Dioxide 28 (21-32) mmol/L Anion Gap 14.4 H (7-13) mEq/L BUN 20 H (7-18) mg/dL Creatinine 1.14 H (0.55-1.02) mg/dL Est Cr Clr Drug Dosing TNP Estimated GFR (MDRD) 46 BUN/Creatinine Ratio 17.5 (No establ ref range) Glucose 102 H (70-99) mg/dL Lactic Acid 1.1 (0.4-2.0) mmol/L Calcium 9.5 (8.5-10.1) mg/dL Total Bilirubin 0.7 (0.2-1.0) mg/dL AST 27 (15-37) U/L ALT 37 (14-59) U/L Alkaline Phosphatase 87 (46-116) U/L Troponin I High Sens 166 H* (<=51) pg/mL B-Natriuretic Peptide 69 (0-100) pg/ml Total Protein 8.2 (6.4-8.2) g/dL Albumin 4.0 (3.4-5.0) g/dL Globulin 4.2 Albumin/Globulin Ratio 1.0 Influenza Type A RNA (NEGATIVE) Influenza Type B RNA (NEGATIVE) SARS-CoV-2 RNA (CARMELITA) (NEGATIVE) 11/02/21 11/03/21 11/03/21 Range/Units 23:10 01:35 08:05 WBC (5.0-10.0) 10^3/uL RBC (4.2-5.4) 10^6/uL Hgb (12.0-16.0) g/dL Hct (37.0-47.0) % MCV (80-100) fL MCH (27.0-34.0) pg MCHC (33.0-35.0) g/dL Plt Count (150-450) 10^3/uL Neut % (Auto) (42.2-75.2) % Lymph % (Auto) (20.5-50.1) % [place] % (Auto) (2-8) % Eos % (Auto) (1.0-3.0) % Baso % (Auto) (0.0-1.0) % PT (9.0-12.0) SEC INR (0.9-1.2) APTT 71.3 H (22.0-34.0) SEC D-Dimer, Quantitative (0-400) ng/mL Sodium (136-145) mmol/L Potassium (3.5-5.1) mmol/L Chloride (98-107) mmol/L Carbon Dioxide (21-32) mmol/L Anion Gap (7-13) mEq/L BUN (7-18) mg/dL Creatinine (0.55-1.02) mg/dL Est Cr Clr Drug Dosing Estimated GFR (MDRD) BUN/Creatinine Ratio (No establ ref range) Glucose (70-99) mg/dL Lactic Acid (0.4-2.0) mmol/L Calcium (8.5-10.1) mg/dL Total Bilirubin (0.2-1.0) mg/dL AST (15-37) U/L ALT (14-59) U/L Alkaline Phosphatase (46-116) U/L Troponin I High Sens 161 H* 137 H* (<=51) pg/mL B-Natriuretic Peptide (0-100) pg/ml Total Protein (6.4-8.2) g/dL Albumin (3.4-5.0) g/dL Globulin Albumin/Globulin Ratio Influenza Type A RNA (NEGATIVE) Influenza Type B RNA (NEGATIVE) SARS-CoV-2 RNA (CARMELITA) (NEGATIVE) 11/03/21 Range/Units 08:05 WBC (5.0-10.0) 10^3/uL RBC (4.2-5.4) 10^6/uL Hgb (12.0-16.0) g/dL Hct (37.0-47.0) % MCV (80-100) fL MCH (27.0-34.0) pg MCHC (33.0-35.0) g/dL Plt Count (150-450) 10^3/uL Neut % (Auto) (42.2-75.2) % Lymph % (Auto) (20.5-50.1) % [place] % (Auto) (2-8) % Eos % (Auto) (1.0-3.0) % Baso % (Auto) (0.0-1.0) % PT (9.0-12.0) SEC INR (0.9-1.2) APTT 50.4 H (22.0-34.0) SEC D-Dimer, Quantitative (0-400) ng/mL Sodium (136-145) mmol/L Potassium (3.5-5.1) mmol/L Chloride (98-107) mmol/L Carbon Dioxide (21-32) mmol/L Anion Gap (7-13) mEq/L BUN (7-18) mg/dL Creatinine (0.55-1.02) mg/dL Est Cr Clr Drug Dosing Estimated GFR (MDRD) BUN/Creatinine Ratio (No establ ref range) Glucose (70-99) mg/dL Lactic Acid (0.4-2.0) mmol/L Calcium (8.5-10.1) mg/dL Total Bilirubin (0.2-1.0) mg/dL AST (15-37) U/L ALT (14-59) U/L Alkaline Phosphatase (46-116) U/L Troponin I High Sens (<=51) pg/mL B-Natriuretic Peptide (0-100) pg/ml Total Protein (6.4-8.2) g/dL Albumin (3.4-5.0) g/dL Globulin Albumin/Globulin Ratio Influenza Type A RNA (NEGATIVE) Influenza Type B RNA (NEGATIVE) SARS-CoV-2 RNA (CARMELITA) (NEGATIVE) Med Orders - Current: Current Medications Aspirin (Aspirin 81 Mg Tab.Chew) 81 mg PO DAILY [facility] Last Admin: 11/03/21 09:25 Dose: 81 mg Documented by: Bupropion HCl (Bupropion 150 Mg Tab.Er) 150 mg PO SuTuThSa@0900 [facility] Bupropion HCl (Bupropion 150 Mg Tab.Er) 300 mg PO MoWeFr@0900 [facility] Last Admin: 11/03/21 09:29 Dose: 300 mg Documented by: Escitalopram Oxalate (Escitalopram 10 Mg Tab) 20 mg PO BID [facility] Last Admin: 11/03/21 09:32 Dose: 20 mg Documented by: Hydrochlorothiazide (Hydrochlorothiazide 25 Mg Tab) 12.5 mg PO DAILY [facility] Last Admin: 11/03/21 09:30 Dose: 12.5 mg Documented by: Heparin Sodium/Sodium Chloride (Heparin 25,000 Units In 1/2 Ns 500 Ml) 25,000 units in 500 mls @ 33.747 mls/hr IV TITRATE [facility]; Protocol Levothyroxine Sodium (Levothyroxine 50 Mcg Tab) 50 mcg PO ACBREAKFAST [facility] Last Admin: 11/03/21 06:11 Dose: 50 mcg Documented by: Losartan Potassium (Losartan 50 Mg Tab) 100 mg PO DAILY [facility] Last Admin: 11/03/21 09:31 Dose: 100 mg Documented by: Metoprolol Tartrate (Metoprolol Tartrate 25 Mg Tab) 25 mg PO Q12H [facility] Last Admin: 11/03/21 09:33 Dose: 25 mg Documented by: Nitroglycerin (Nitroglycerin 0.4 Mg Tab.Sl) 0.4 mg SL Q5M PRN PRN Reason: Chest Pain Stop: 11/03/21 20:38 Omeprazole (Omeprazole 20 Mg Cap.Cr) 20 mg PO DAILY [facility] Last Admin: 11/03/21 09:27 Dose: 20 mg Documented by: Rosuvastatin Calcium (Rosuvastatin 10 Mg Tab) 40 mg PO DAILY [facility] Last Admin: 11/03/21 09:25 Dose: 40 mg Documented by: Sodium Chloride (Sodium Chloride 0.9% 10 Ml Syringe) 10 ml FLUSH ASDIRECTED PRN PRN Reason: Keep Vein Open Last Admin: 11/02/21 17:33 Dose: 10 ml Documented by: Zolpidem Tartrate (Zolpidem 5 Mg Tab) 5 mg PO BEDTIME [facility] Last Admin: 11/02/21 22:44 Dose: 5 mg Documented by: Discontinued Medications Albuterol/Ipratropium (Albuterol/Ipratropium 3.0-0.5 Mg/3 Ml Neb Soln) 3 ml NEB ONETIME ONE Stop: 11/02/21 16:48 Last Admin: 11/02/21 17:13 Dose: 3 ml Documented by: Aspirin (Aspirin 81 Mg Tab.Chew) 324 mg PO ONETIME ONE Stop: 11/02/21 18:30 Last Admin: 11/02/21 19:20 Dose: 324 mg Documented by: Aspirin (Aspirin 81 Mg Tab.Chew) Confirm Administered Dose 324 mg .ROUTE .STK- MED ONE Stop: 11/02/21 19:18 Last Admin: 11/02/21 19:38 Dose: Not Given Documented by: Aspirin (Aspirin 81 Mg Tab.Chew) Confirm Administered Dose 324 mg .ROUTE .STK- MED ONE Stop: 11/02/21 19:19 Last Admin: 11/02/21 19:38 Dose: Not Given Documented by: Heparin Sodium (Porcine) (Heparin Sodium 5,000 Units/Ml Vial) 60 units IVPUSH .BOLUS ONE; Protocol Stop: 11/02/21 18:32 Last Admin: 11/02/21 19:28 Dose: 4,000 units Documented by: Heparin Sodium/Sodium Chloride (Heparin 25,000 Units In 1/2 Ns 500 Ml) 25,000 units in 500 mls @ 20 mls/hr IV TITRATE [facility]; Protocol Last Titration: 11/03/21 02:32 Dose: 16.7 mls/hr Documented by: Methylprednisolone Sodium Succinate (Methylprednisolone Sodium Succinate 125 Mg/2 Ml Sdv) 125 mg IVPUSH ONETIME ONE Stop: 11/02/21 16:48 Last Admin: 11/02/21 17:33 Dose: 125 mg Documented by: Zolpidem Tartrate (Zolpidem 5 Mg Tab) 5 mg PO BEDTIME [facility]
[2021-11-03] MEDS ORDERED: Zolpidem 5 MG Tab PO SCH (21:00)
[2021-11-03] MEDS ORDERED: Non-Formulary Medication 1 Each (Zolpidem Tartrate 10 MG Tablet) PO SCH (21:00)
[2021-11-04] MEDS ORDERED: buPROPion 150 MG Tab.ER PO SCH (09:00)
== END 2021-11-03 11:00 | DRG 282 ==
LOC: DL.ED 14:16 → DL.MS 19:07
PROVIDERS: ADMIT Internal Medicine; ATTEND Internal Medicine
PROC: 3E0234Z Introduction of Serum, Toxoid and Vaccine into Muscle, Percutaneous Approach (ICD-10-PCS; principal; 2021-11-02)
DX: I21.4 Non-ST elevation (NSTEMI) myocardial infarction (principal); R06.09 Other forms of dyspnea; F41.9 Anxiety disorder, unspecified; I10 Essential (primary) hypertension; E78.5 Hyperlipidemia, unspecified; D21.9 Benign neoplasm of connective and other soft tissue, unspecified; E03.9 Hypothyroidism, unspecified; Z20.822 Contact with and (suspected) exposure to COVID-19; I25.10 Atherosclerotic heart disease of native coronary artery without angina pectoris; E78.00 Pure hypercholesterolemia, unspecified; Z79.899 Other long term (current) drug therapy; K21.9 Gastro-esophageal reflux disease without esophagitis; Z86.73 Personal history of transient ischemic attack (TIA), and cerebral infarction without residual deficits; Z87.891 Personal history of nicotine dependence; Z79.890 Hormone replacement therapy; Z23 Encounter for immunization; Z79.02 Long term (current) use of antithrombotics/antiplatelets
CPT/HCPCS: 0240U; 36415; 71046; 80053; 83605; 83880; 84484; 85025; 85379; 85610; 85730; 87040; 93005; 94640; 96374; 99285-25; A9270-GY; J1644; J2930; J7620-GY

== ENCOUNTER 2022-04-19 12:59 | Emergency (ER) | payer MEDICARE, BC ==
[2022-04-19 15:19] LABS: ANION GAP 15.7 mEq/L (7-13)
== END 2022-04-19 17:10 | disposition left against medical advice (07) ==
LOC: DL.ED 12:59
DX: R06.02 Shortness of breath (principal); I25.10 Atherosclerotic heart disease of native coronary artery without angina pectoris; E78.00 Pure hypercholesterolemia, unspecified; K21.9 Gastro-esophageal reflux disease without esophagitis; E03.9 Hypothyroidism, unspecified; I10 Essential (primary) hypertension; Z86.73 Personal history of transient ischemic attack (TIA), and cerebral infarction without residual deficits; Z79.899 Other long term (current) drug therapy; Z87.891 Personal history of nicotine dependence
CPT/HCPCS: 36415; 80053; 83605; 84484; 85025; 99283; 99284

== ENCOUNTER 2023-12-19 07:28 | Inpatient (IN) | payer MEDICARE, BC ==
[~2023-12-19 07:28] MED LIST: Lactated Ringers 1,000 ML IV ONE; Ondansetron 4 MG/2 ML SDV IVPUSH ONE
[2023-12-19] MEDS ORDERED: Morphine 4 MG/ML Syringe IVPUSH ONE (07:29)
[2023-12-19 08:00] LABS: BASOPHILS PERCENT AUTO 0.2 % (0.0-1.0); EOSINOPHILS PERCENT AUTO 0.7 % (1.0-3.0); HEMATOCRIT 37.7 % (37.0-47.0); HEMOGLOBIN 12.3 g/dL (12.0-16.0); LYMPHOCYTES PERCENT AUTO 12.8 % (20.5-50.1); MEAN CORPUSCULAR HEMOGLOBIN 31.8 pg (27.0-34.0); MEAN CORPUSCULAR HGB CONC 32.6 g/dL (33.0-35.0); MEAN CORPUSCULAR VOLUME 97.4 fL (80-100); MONOCYTES PERCENT AUTO 4.8 % (2-8); NEUTROPHILS PERCENT AUTO 81.5 % (42.2-75.2); PLATELET COUNT,PLT 269 10^3/uL (150-450); RED BLOOD CELL COUNT 3.87 10^6/uL (4.2-5.4)
[2023-12-19 08:19] LABS: A/G RATIO 1.2; ALBUMIN 3.6 g/dL (3.4-5.0); BILIRUBIN TOTAL 0.3 mg/dL (0.2-1.0); CALCIUM 9.2 mg/dL (8.5-10.1); EST CRCL DRUG DOSING (CG) 47.71 mL/min; PROTEIN TOTAL,TP 6.7 g/dL (6.4-8.2)
[2023-12-19] MEDS ORDERED: Sodium Chloride 0.9% 10 ML Syringe FLUSH PRN (12:08)
[2023-12-19] MEDS ORDERED: Sennosides/Docusate Sodium 50-8.6 MG Tab PO PRN (12:08)
[2023-12-19] MEDS ORDERED: Albuterol/Ipratropium 3.0-0.5 MG/3 ML Neb Soln NEB PRN (12:08)
[2023-12-19] MEDS ORDERED: Polyethylene Glycol 3350 Powder 17 GM Packet PO PRN (12:08)
[2023-12-19] MEDS ORDERED: Magnesium Hydroxide 400 MG/5 ML Susp 30 ML Cup PO PRN (12:08)
[2023-12-19] MEDS ORDERED: Naloxone 2 MG/2 ML Syringe IVPUSH PRN (12:08)
[2023-12-19] MEDS ORDERED: Acetaminophen 325 MG Tab PO PRN (12:08)
[2023-12-19] MEDS ORDERED: Metoprolol Tartrate 5 MG/5 ML SDV IVPUSH PRN (12:12)
[2023-12-19] MEDS ORDERED: Pantoprazole 40 MG Vial IVPUSH ONE (12:12)
[2023-12-19] MEDS ORDERED: MVI, Adult with Vitamin K 10 ML, Folic Acid 1 MG, Thiamine 100 MG in Lactated Ringers 1... IV ONE ×4 (12:13)
[2023-12-19] MEDS: HYDROmorphone 0.5 MG/0.5 ML Syringe IVPUSH PRN ×3 (13:56→22:29)
[2023-12-19] MEDS: tiZANidine 4 MG Tab PO PRN ×2 (14:11→19:44)
[2023-12-19 15:03] LABS: TSH ULTRASENSITIVE 3.52 uIU/mL (0.36-3.74)
[2023-12-19] MEDS: Sodium Chloride 0.9% 10 ML Syringe FLUSH SCH (20:14)
[2023-12-19] MEDS: Acetaminophen/oxyCODONE 325-5 MG Tab PO PRN (22:28)
[2023-12-19] MEDS: Zolpidem 5 MG Tab PO PRN (22:33)
[2023-12-20] MEDS: HYDROmorphone 0.5 MG/0.5 ML Syringe IVPUSH PRN (05:04)
[2023-12-20] MEDS: tiZANidine 4 MG Tab PO PRN ×4 (05:06→23:37)
[2023-12-20] MEDS: Pantoprazole 40 MG Tab.CR PO SCH (05:07)
[2023-12-20] MEDS: Levothyroxine 25 MCG Tab PO SCH (05:07)
[2023-12-20 07:08] LABS: A/G RATIO 1.11; ALBUMIN 3.1 g/dL (3.4-5.0); ANION GAP 9.1 mEq/L (7-13); BILIRUBIN TOTAL 0.7 mg/dL (0.2-1.0); BUN/CREATININE RATIO 16.9 (No establ ref range); CALCIUM 8.3 mg/dL (8.5-10.1); CREATININE 1.48 mg/dL (0.55-1.02); EST CRCL DRUG DOSING (CG) 32.24 mL/min; MAGNESIUM 1.5 mg/dL (1.8-2.4); POTASSIUM,K 4.1 mmol/L (3.5-5.1); PROTEIN TOTAL,TP 5.9 g/dL (6.4-8.2)
[2023-12-20] MEDS ORDERED: Magnesium Sulfate/Water 2 GM in Premix Bag 1 BAG IV ONE (08:08)
[2023-12-20] MEDS ORDERED: Sodium Chloride 0.9% 1,000 ML IV SCH (08:15)
[2023-12-20] MEDS: Acetaminophen/oxyCODONE 325-5 MG Tab PO PRN ×3 (08:44→21:12)
[2023-12-20] MEDS: Clopidogrel 75 MG Tab PO SCH (08:45)
[2023-12-20] MEDS: Citalopram 20 MG Tab PO SCH (08:45)
[2023-12-20] MEDS: Dexamethasone 4 MG Tab PO SCH (08:45)
[2023-12-20] MEDS: Sodium Chloride 0.9% 10 ML Syringe FLUSH SCH ×2 (09:49→21:14)
[2023-12-20] MEDS: buPROPion 150 MG Tab.ER PO SCH (09:49)
[2023-12-20] MEDS: Aluminum Hydroxide/Magnesium Hydroxide/Simethicone Susp 30 ML Cup PO PRN (21:11)
[2023-12-20] MEDS: Zolpidem 5 MG Tab PO PRN (23:37)
[2023-12-21] MEDS: Pantoprazole 40 MG Tab.CR PO SCH ×2 (05:36→15:36)
[2023-12-21] MEDS: Levothyroxine 25 MCG Tab PO SCH (05:36)
[2023-12-21] MEDS: Acetaminophen/oxyCODONE 325-5 MG Tab PO PRN ×2 (05:41→10:20)
[2023-12-21 06:35] LABS: BASOPHILS PERCENT AUTO 0.1 % (0.0-1.0); EOSINOPHILS PERCENT AUTO 0.1 % (1.0-3.0); HEMATOCRIT 32.3 % (37.0-47.0); HEMOGLOBIN 10.2 g/dL (12.0-16.0); LYMPHOCYTES PERCENT AUTO 13.2 % (20.5-50.1); MEAN CORPUSCULAR HEMOGLOBIN 31.9 pg (27.0-34.0); MEAN CORPUSCULAR HGB CONC 31.6 g/dL (33.0-35.0); MEAN CORPUSCULAR VOLUME 100.9 fL (80-100); MONOCYTES PERCENT AUTO 8.3 % (2-8); NEUTROPHILS PERCENT AUTO 78.3 % (42.2-75.2); PLATELET COUNT,PLT 200 10^3/uL (150-450); WHITE BLOOD CELL COUNT,WBC 9.7 10^3/uL (5.0-10.0)
[2023-12-21 06:58] LABS: ANION GAP 12.6 mEq/L (7-13); BILIRUBIN TOTAL 0.7 mg/dL (0.2-1.0); BUN/CREATININE RATIO 19.5 (No establ ref range); CALCIUM 8.4 mg/dL (8.5-10.1); CREATININE 1.28 mg/dL (0.55-1.02); EST CRCL DRUG DOSING (CG) 37.28 mL/min; MAGNESIUM 2.1 mg/dL (1.8-2.4); POTASSIUM,K 4.6 mmol/L (3.5-5.1); PROTEIN TOTAL,TP 6.1 g/dL (6.4-8.2)
[2023-12-21 06:59] LABS: A/G RATIO 0.97
[2023-12-21] MEDS ORDERED: Lidocaine 5% 700 MG Patch TOP ONE (09:55)
[2023-12-21] MEDS ORDERED: Ibuprofen 200 MG Tab PO ONE (09:59)
[2023-12-21] MEDS ORDERED: Gabapentin 100 MG Cap PO ONE (10:01)
[2023-12-21] MEDS: buPROPion 150 MG Tab.ER PO SCH (10:19)
[2023-12-21] MEDS: Dexamethasone 4 MG Tab PO SCH (10:19)
[2023-12-21] MEDS: tiZANidine 4 MG Tab PO PRN (10:19)
[2023-12-21] MEDS: Clopidogrel 75 MG Tab PO SCH (10:19)
[2023-12-21] MEDS: Lidocaine 5% 700 MG Patch TOP SCH (10:20)
[2023-12-21] MEDS: Lactulose Soln 10 GM/15 ML 30 ML UD Cup PO SCH (10:20)
[2023-12-21] MEDS: Citalopram 20 MG Tab PO SCH (10:20)
[2023-12-21] MEDS: Sodium Chloride 0.9% 10 ML Syringe FLUSH SCH ×2 (10:21→21:01)
[2023-12-21] MEDS: Sodium Chloride 0.9% 1,000 ML IV SCH (10:38)
[2023-12-21] MEDS ORDERED: tiZANidine 4 MG Tab PO PRN (11:11)
[2023-12-21] MEDS: Ibuprofen 800 MG Tab PO SCH (21:03)
[2023-12-21] MEDS: Gabapentin 100 MG Cap PO SCH (21:05)
[2023-12-21] MEDS: tiZANidine 4 MG Tab PO SCH (21:05)
[2023-12-21] MEDS: Sennosides/Docusate Sodium 50-8.6 MG Tab PO SCH (21:05)
[2023-12-22] MEDS: Acetaminophen/oxyCODONE 325-5 MG Tab PO PRN (01:36)
[2023-12-22] MEDS: Levothyroxine 25 MCG Tab PO SCH (05:36)
[2023-12-22] MEDS: traMADol 50 MG Tab PO PRN (05:36)
[2023-12-22] MEDS: Pantoprazole 40 MG Tab.CR PO SCH ×2 (05:36→16:40)
[2023-12-22] MEDS: Sodium Chloride 0.9% 1,000 ML IV SCH (06:15)
[2023-12-22] MEDS ORDERED: Melatonin 3 MG Tab PO PRN (06:45)
[2023-12-22 07:31] LABS: HEMOGLOBIN A1C 5.3 % (<5.7)
[2023-12-22] MEDS: HYDROmorphone 0.5 MG/0.5 ML Syringe IVPUSH PRN (08:41)
[2023-12-22] MEDS: tiZANidine 4 MG Tab PO SCH ×2 (08:43→20:51)
[2023-12-22 08:54] LABS: ALBUMIN 3.2 g/dL (3.4-5.0); ANION GAP 15.1 mEq/L (7-13); BILIRUBIN TOTAL 0.5 mg/dL (0.2-1.0); BUN/CREATININE RATIO 22.7 (No establ ref range); CALCIUM 8.4 mg/dL (8.5-10.1); CREATININE 1.28 mg/dL (0.55-1.02); EST CRCL DRUG DOSING (CG) 37.28 mL/min; POTASSIUM,K 4.1 mmol/L (3.5-5.1); PROTEIN TOTAL,TP 6.7 g/dL (6.4-8.2)
[2023-12-22 08:55] LABS: A/G RATIO 0.91
[2023-12-22] MEDS: Lidocaine 5% 700 MG Patch TOP SCH (09:40)
[2023-12-22] MEDS: Lactulose Soln 10 GM/15 ML 30 ML UD Cup PO SCH (09:41)
[2023-12-22] MEDS: Citalopram 20 MG Tab PO SCH (09:41)
[2023-12-22] MEDS: Gabapentin 100 MG Cap PO SCH ×2 (09:41→20:50)
[2023-12-22] MEDS: Dexamethasone 4 MG Tab PO SCH (09:42)
[2023-12-22] MEDS: Clopidogrel 75 MG Tab PO SCH (09:42)
[2023-12-22] MEDS: Ibuprofen 600 MG Tab PO SCH ×2 (09:54→20:50)
[2023-12-22] MEDS: buPROPion 150 MG Tab.ER PO SCH (09:55)
[2023-12-22] MEDS: Ibuprofen 800 MG Tab PO SCH (10:22)
[2023-12-22] MEDS: Sodium Chloride 0.9% 10 ML Syringe FLUSH SCH ×2 (13:11→20:51)
[2023-12-22] MEDS: Bisacodyl 10 MG Supp RECTAL SCH (19:41)
[2023-12-22] MEDS: Sennosides/Docusate Sodium 50-8.6 MG Tab PO SCH (20:51)
[2023-12-22 23:41] LABS: 25-OH VITAMIN D2 <1.0 ng/mL; 25-OH VITAMIN D3 46.6 ng/mL
[2023-12-23] MEDS: HYDROmorphone 0.5 MG/0.5 ML Syringe IVPUSH PRN (03:00)
[2023-12-23] MEDS: Bisacodyl 10 MG Supp RECTAL SCH ×2 (05:20→18:11)
[2023-12-23] MEDS: Levothyroxine 25 MCG Tab PO SCH (05:21)
[2023-12-23] MEDS: Pantoprazole 40 MG Tab.CR PO SCH ×2 (05:21→16:30)
[2023-12-23] MEDS: Acetaminophen/oxyCODONE 325-5 MG Tab PO PRN ×2 (09:04→18:10)
[2023-12-23] MEDS: tiZANidine 4 MG Tab PO SCH ×2 (09:06→21:19)
[2023-12-23] MEDS: buPROPion 150 MG Tab.ER PO SCH (09:06)
[2023-12-23] MEDS: Citalopram 20 MG Tab PO SCH (09:06)
[2023-12-23] MEDS: Ibuprofen 600 MG Tab PO SCH ×2 (09:06→21:18)
[2023-12-23] MEDS: Gabapentin 100 MG Cap PO SCH ×2 (09:08→21:18)
[2023-12-23] MEDS: Clopidogrel 75 MG Tab PO SCH (09:08)
[2023-12-23] MEDS: Dexamethasone 4 MG Tab PO SCH (09:08)
[2023-12-23] MEDS: Lidocaine 5% 700 MG Patch TOP SCH (09:09)
[2023-12-23] MEDS: Sodium Chloride 0.9% 10 ML Syringe FLUSH SCH ×2 (09:09→21:19)
[2023-12-23] MEDS: Lactulose Soln 10 GM/15 ML 30 ML UD Cup PO SCH (09:09)
[2023-12-23] MEDS: Zolpidem 5 MG Tab PO PRN (21:18)
[2023-12-23] MEDS: Aluminum Hydroxide/Magnesium Hydroxide/Simethicone Susp 30 ML Cup PO PRN (21:19)
[2023-12-23] MEDS: Sennosides/Docusate Sodium 50-8.6 MG Tab PO SCH (21:19)
[2023-12-24] MEDS: Bisacodyl 10 MG Supp RECTAL SCH ×2 (05:40→17:10)
[2023-12-24] MEDS: Levothyroxine 25 MCG Tab PO SCH (05:40)
[2023-12-24] MEDS: Aluminum Hydroxide/Magnesium Hydroxide/Simethicone Susp 30 ML Cup PO PRN ×2 (05:41→13:30)
[2023-12-24] MEDS: traMADol 50 MG Tab PO PRN (05:41)
[2023-12-24] MEDS: Pantoprazole 40 MG Tab.CR PO SCH ×2 (05:41→16:22)
[2023-12-24 07:17] LABS: ALBUMIN 2.9 g/dL (3.4-5.0); ANION GAP 15.4 mEq/L (7-13); BILIRUBIN TOTAL 0.5 mg/dL (0.2-1.0); BUN/CREATININE RATIO 23.8 (No establ ref range); CALCIUM 8.8 mg/dL (8.5-10.1); CREATININE 1.05 mg/dL (0.55-1.02); EST CRCL DRUG DOSING (CG) 45.44 mL/min; POTASSIUM,K 4.4 mmol/L (3.5-5.1); PROTEIN TOTAL,TP 6.5 g/dL (6.4-8.2)
[2023-12-24 07:19] LABS: A/G RATIO 0.81
[2023-12-24] MEDS: Lactulose Soln 10 GM/15 ML 30 ML UD Cup PO SCH (08:49)
[2023-12-24] MEDS: Citalopram 20 MG Tab PO SCH (08:50)
[2023-12-24] MEDS: Gabapentin 100 MG Cap PO SCH ×2 (08:50→20:47)
[2023-12-24] MEDS: tiZANidine 4 MG Tab PO SCH ×2 (08:50→20:47)
[2023-12-24] MEDS: Acetaminophen/oxyCODONE 325-5 MG Tab PO PRN ×2 (08:50→20:46)
[2023-12-24] MEDS: Clopidogrel 75 MG Tab PO SCH (08:51)
[2023-12-24] MEDS: Ibuprofen 600 MG Tab PO SCH (08:52)
[2023-12-24] MEDS: Dexamethasone 4 MG Tab PO SCH (08:52)
[2023-12-24] MEDS: Lidocaine 5% 700 MG Patch TOP SCH (08:53)
[2023-12-24] MEDS: buPROPion 150 MG Tab.ER PO SCH (09:50)
[2023-12-24] MEDS ORDERED: Hydrochlorothiazide/Triamterene 25-37.5 Tab PO ONE (09:50)
[2023-12-24] MEDS: hydrALAZINE 20 MG/ML SDV IVPUSH PRN ×2 (10:27→20:41)
[2023-12-24] MEDS: Sodium Chloride 0.9% 10 ML Syringe FLUSH SCH ×2 (10:43→20:42)
[2023-12-24] MEDS: Sennosides/Docusate Sodium 50-8.6 MG Tab PO SCH (20:48)
[2023-12-24] MEDS: Zolpidem 5 MG Tab PO PRN (21:49)
[2023-12-25] MEDS: traMADol 50 MG Tab PO PRN (04:06)
[2023-12-25] MEDS: Bisacodyl 10 MG Supp RECTAL SCH (04:15)
[2023-12-25] MEDS: hydrALAZINE 20 MG/ML SDV IVPUSH PRN (05:07)
[2023-12-25] MEDS: Levothyroxine 25 MCG Tab PO SCH (05:11)
[2023-12-25] MEDS: Pantoprazole 40 MG Tab.CR PO SCH (05:11)
[2023-12-25 07:02] LABS: ALBUMIN 3.1 g/dL (3.4-5.0); ANION GAP 15.1 mEq/L (7-13); BILIRUBIN TOTAL 0.6 mg/dL (0.2-1.0); CALCIUM 9.2 mg/dL (8.5-10.1); EST CRCL DRUG DOSING (CG) 47.71 mL/min; POTASSIUM,K 4.1 mmol/L (3.5-5.1); PROTEIN TOTAL,TP 6.9 g/dL (6.4-8.2)
[2023-12-25 07:03] LABS: A/G RATIO 0.82
[2023-12-25] MEDS: Acetaminophen/oxyCODONE 325-5 MG Tab PO PRN ×2 (07:24→12:27)
[2023-12-25] MEDS ORDERED: hydrALAZINE 25 MG Tab PO SCH (09:00)
[2023-12-25] MEDS ORDERED: Hydrochlorothiazide/Triamterene 25-37.5 Tab PO SCH (09:00)
[2023-12-25] MEDS: Lidocaine 5% 700 MG Patch TOP SCH (09:53)
[2023-12-25] MEDS: Lactulose Soln 10 GM/15 ML 30 ML UD Cup PO SCH (09:56)
[2023-12-25] MEDS: Citalopram 20 MG Tab PO SCH (09:57)
[2023-12-25] MEDS: Clopidogrel 75 MG Tab PO SCH (09:59)
[2023-12-25] MEDS: Gabapentin 100 MG Cap PO SCH (09:59)
[2023-12-25] MEDS: Dexamethasone 4 MG Tab PO SCH (09:59)
[2023-12-25] MEDS: buPROPion 150 MG Tab.ER PO SCH (10:00)
[2023-12-25] MEDS: tiZANidine 4 MG Tab PO SCH (10:00)
[2023-12-25] MEDS: Sodium Chloride 0.9% 10 ML Syringe FLUSH SCH (10:05)
[2023-12-25] MEDS ORDERED: amLODIPine 5 MG Tab PO SCH (21:00)
== END 2023-12-25 14:09 | disposition swing bed (61) | DRG 552 ==
LOC: DL.ED 07:28 → DL.MS 11:17 → UNDOADMOB 11:17 → DL.MS 11:18 → INTOOBSV 12-20 11:09 → OBSVTOIN 12-20 11:09
PROVIDERS: ADMIT Internal Medicine; ATTEND Internal Medicine
DX: M54.9 Dorsalgia, unspecified (principal); I25.10 Atherosclerotic heart disease of native coronary artery without angina pectoris; J98.11 Atelectasis; N17.9 Acute kidney failure, unspecified; E78.5 Hyperlipidemia, unspecified; E03.9 Hypothyroidism, unspecified; K76.0 Fatty (change of) liver, not elsewhere classified; Z66 Do not resuscitate; Z79.02 Long term (current) use of antithrombotics/antiplatelets; Z96.653 Presence of artificial knee joint, bilateral; F32.9 Major depressive disorder, single episode, unspecified; G89.29 Other chronic pain; M19.90 Unspecified osteoarthritis, unspecified site; R73.9 Hyperglycemia, unspecified; M75.101 Unspecified rotator cuff tear or rupture of right shoulder, not specified as traumatic; R09.02 Hypoxemia; E86.0 Dehydration; I95.2 Hypotension due to drugs; T50.995A Adverse effect of other drugs, medicaments and biological substances, initial encounter; E83.42 Hypomagnesemia; K59.00 Constipation, unspecified; N18.30 Chronic kidney disease, stage 3 unspecified; I12.9 Hypertensive chronic kidney disease with stage 1 through stage 4 chronic kidney disease, or unspecified chronic kidney disease; H91.90 Unspecified hearing loss, unspecified ear; E78.00 Pure hypercholesterolemia, unspecified; K21.9 Gastro-esophageal reflux disease without esophagitis; F41.9 Anxiety disorder, unspecified; Z87.891 Personal history of nicotine dependence; Z79.890 Hormone replacement therapy; Z79.899 Other long term (current) drug therapy; I25.2 Old myocardial infarction; Z86.73 Personal history of transient ischemic attack (TIA), and cerebral infarction without residual deficits
CPT/HCPCS: 36415 ×2; 70450; 71045; 71250; 72128; 72131; 73502; 80053 ×2; 82306; 82550 ×2; 83735; 84439; 84443; 85025; 96361; 96374; 96375; 97165; 99284; 99285; A9270 ×11; C9113; J1170 ×4; J2270; J2405; J3411; J3475; J7030; J7120 ×2; J8540; 76770; 83036; 93306; 94060; 94668; 94760; 96365; 96366; 96367; 96376; 97110-GP; 97161-GP; 97530-GO; 97535-GO; G0378; J0360; J3490

== ENCOUNTER 2023-12-25 08:42 | Inpatient (IN) | payer MEDICARE, BC ==
[2023-12-25] MEDS ORDERED: Hydrochlorothiazide/Triamterene 25-37.5 Tab PO ONE (11:04)
[2023-12-25] MEDS ORDERED: Sodium Chloride 0.9% 10 ML Syringe FLUSH PRN (11:04)
[2023-12-25] MEDS ORDERED: Acetaminophen 325 MG Tab PO PRN (11:04)
[2023-12-25] MEDS ORDERED: Aluminum Hydroxide/Magnesium Hydroxide/Simethicone Susp 30 ML Cup PO PRN (11:04)
[2023-12-25] MEDS ORDERED: traMADol 50 MG Tab PO PRN (11:04)
[2023-12-25] MEDS ORDERED: Albuterol/Ipratropium 3.0-0.5 MG/3 ML Neb Soln NEB PRN (11:04)
[2023-12-25] MEDS ORDERED: Sennosides/Docusate Sodium 50-8.6 MG Tab PO PRN (11:04)
[2023-12-25] MEDS ORDERED: Melatonin 3 MG Tab PO PRN (11:04)
[2023-12-25] MEDS ORDERED: Magnesium Hydroxide 400 MG/5 ML Susp 30 ML Cup PO PRN (11:04)
[2023-12-25] MEDS ORDERED: Hydrochlorothiazide/Triamterene 25-37.5 Tab ONE (15:05)
[2023-12-25] MEDS: Pantoprazole 40 MG Tab.CR PO SCH (15:12)
[2023-12-25] MEDS: Bisacodyl 10 MG Supp RECTAL SCH (16:44)
[2023-12-25] MEDS: Acetaminophen/oxyCODONE 325-5 MG Tab PO PRN ×2 (16:44→21:01)
[2023-12-25] MEDS: Gabapentin 100 MG Cap PO SCH (21:00)
[2023-12-25] MEDS ORDERED: Sodium Chloride 0.9% 10 ML Syringe FLUSH SCH (21:00)
[2023-12-25] MEDS: hydrALAZINE 25 MG Tab PO SCH (21:00)
[2023-12-25] MEDS: amLODIPine 5 MG Tab PO SCH (21:01)
[2023-12-25] MEDS: tiZANidine 4 MG Tab PO SCH (21:01)
[2023-12-25] MEDS: Zolpidem 5 MG Tab PO PRN (21:06)
[2023-12-25] MEDS: Sennosides/Docusate Sodium 50-8.6 MG Tab PO SCH (22:27)
[2023-12-26] MEDS: Acetaminophen/oxyCODONE 325-5 MG Tab PO PRN ×3 (01:05→09:12)
[2023-12-26] MEDS: tiZANidine 4 MG Tab PO PRN ×2 (05:11→14:51)
[2023-12-26] MEDS: Levothyroxine 25 MCG Tab PO SCH (05:12)
[2023-12-26] MEDS: Pantoprazole 40 MG Tab.CR PO SCH ×2 (05:12→15:03)
[2023-12-26] MEDS: Bisacodyl 10 MG Supp RECTAL SCH ×2 (06:16→17:01)
[2023-12-26] MEDS: Lidocaine 5% 700 MG Patch TOP SCH (09:07)
[2023-12-26] MEDS: hydrALAZINE 25 MG Tab PO SCH ×2 (09:07→20:29)
[2023-12-26] MEDS: buPROPion 150 MG Tab.ER PO SCH (09:07)
[2023-12-26] MEDS ORDERED: Ibuprofen 600 MG Tab PO ONE (09:07)
[2023-12-26] MEDS: Citalopram 20 MG Tab PO SCH (09:08)
[2023-12-26] MEDS: Hydrochlorothiazide/Triamterene 25-37.5 Tab PO SCH (09:08)
[2023-12-26] MEDS: Clopidogrel 75 MG Tab PO SCH (09:08)
[2023-12-26] MEDS: Dexamethasone 4 MG Tab PO SCH (09:08)
[2023-12-26] MEDS: Gabapentin 100 MG Cap PO SCH ×2 (09:08→20:30)
[2023-12-26] MEDS: tiZANidine 4 MG Tab PO SCH ×2 (09:09→20:29)
[2023-12-26] MEDS: Polyethylene Glycol 3350 Powder 17 GM Packet PO PRN (15:03)
[2023-12-26] MEDS: Sennosides/Docusate Sodium 50-8.6 MG Tab PO SCH (20:29)
[2023-12-26] MEDS: Ibuprofen 600 MG Tab PO SCH (20:30)
[2023-12-26] MEDS: amLODIPine 5 MG Tab PO SCH (20:30)
[2023-12-26] MEDS: Zolpidem 5 MG Tab PO PRN (21:42)
[2023-12-27] MEDS: Acetaminophen/oxyCODONE 325-5 MG Tab PO PRN ×4 (01:06→21:34)
[2023-12-27] MEDS: Pantoprazole 40 MG Tab.CR PO SCH ×2 (05:16→16:04)
[2023-12-27] MEDS: Bisacodyl 10 MG Supp RECTAL SCH ×2 (05:18→17:16)
[2023-12-27] MEDS: Levothyroxine 25 MCG Tab PO SCH (05:37)
[2023-12-27] MEDS: Citalopram 20 MG Tab PO SCH (10:18)
[2023-12-27] MEDS: Gabapentin 100 MG Cap PO SCH ×2 (10:19→21:35)
[2023-12-27] MEDS: Ibuprofen 600 MG Tab PO SCH ×2 (10:19→21:36)
[2023-12-27] MEDS: Polyethylene Glycol 3350 Powder 17 GM Packet PO PRN (10:22)
[2023-12-27] MEDS: buPROPion 150 MG Tab.ER PO SCH (10:23)
[2023-12-27] MEDS: Hydrochlorothiazide/Triamterene 25-37.5 Tab PO SCH (10:24)
[2023-12-27] MEDS: Clopidogrel 75 MG Tab PO SCH (10:25)
[2023-12-27] MEDS: hydrALAZINE 25 MG Tab PO SCH ×2 (10:25→21:36)
[2023-12-27] MEDS: Dexamethasone 4 MG Tab PO SCH (10:25)
[2023-12-27] MEDS: Lidocaine 5% 700 MG Patch TOP SCH (10:26)
[2023-12-27] MEDS: tiZANidine 4 MG Tab PO SCH ×2 (10:26→21:36)
[2023-12-27] MEDS: Zolpidem 5 MG Tab PO PRN (21:34)
[2023-12-27] MEDS: amLODIPine 5 MG Tab PO SCH (21:35)
[2023-12-27] MEDS: Sennosides/Docusate Sodium 50-8.6 MG Tab PO SCH (21:36)
[2023-12-28] MEDS: Levothyroxine 25 MCG Tab PO SCH ×2 (04:29→05:09)
[2023-12-28] MEDS: Acetaminophen/oxyCODONE 325-5 MG Tab PO PRN ×3 (04:30→21:45)
[2023-12-28] MEDS: Pantoprazole 40 MG Tab.CR PO SCH ×3 (04:30→15:56)
[2023-12-28] MEDS: Gabapentin 100 MG Cap PO SCH ×2 (08:54→21:44)
[2023-12-28] MEDS: Hydrochlorothiazide/Triamterene 25-37.5 Tab PO SCH (08:55)
[2023-12-28] MEDS: Dexamethasone 4 MG Tab PO SCH (08:55)
[2023-12-28] MEDS: buPROPion 150 MG Tab.ER PO SCH (08:56)
[2023-12-28] MEDS: Citalopram 20 MG Tab PO SCH (08:56)
[2023-12-28] MEDS: Clopidogrel 75 MG Tab PO SCH (08:56)
[2023-12-28] MEDS: tiZANidine 4 MG Tab PO SCH ×2 (08:56→21:44)
[2023-12-28] MEDS: hydrALAZINE 25 MG Tab PO SCH ×2 (08:57→21:44)
[2023-12-28] MEDS: Ibuprofen 600 MG Tab PO SCH ×2 (08:57→21:44)
[2023-12-28] MEDS: Lidocaine 5% 700 MG Patch TOP SCH (08:58)
[2023-12-28] MEDS: amLODIPine 5 MG Tab PO SCH (21:45)
[2023-12-28] MEDS: Sennosides/Docusate Sodium 50-8.6 MG Tab PO SCH (21:46)
[2023-12-29] MEDS: Acetaminophen/oxyCODONE 325-5 MG Tab PO PRN ×3 (05:23→22:14)
[2023-12-29] MEDS: Levothyroxine 25 MCG Tab PO SCH (05:24)
[2023-12-29] MEDS: Pantoprazole 40 MG Tab.CR PO SCH ×2 (05:24→16:55)
[2023-12-29] MEDS: hydrALAZINE 25 MG Tab PO SCH ×2 (08:58→21:23)
[2023-12-29] MEDS: Clopidogrel 75 MG Tab PO SCH (08:59)
[2023-12-29] MEDS: tiZANidine 4 MG Tab PO SCH ×2 (08:59→21:23)
[2023-12-29] MEDS: Citalopram 20 MG Tab PO SCH (08:59)
[2023-12-29] MEDS: buPROPion 150 MG Tab.ER PO SCH (08:59)
[2023-12-29] MEDS: Gabapentin 100 MG Cap PO SCH ×2 (09:00→21:24)
[2023-12-29] MEDS: Hydrochlorothiazide/Triamterene 25-37.5 Tab PO SCH (09:00)
[2023-12-29] MEDS: Ibuprofen 600 MG Tab PO SCH ×2 (09:01→21:24)
[2023-12-29] MEDS: Dexamethasone 4 MG Tab PO SCH (09:02)
[2023-12-29] MEDS: Lidocaine 5% 700 MG Patch TOP SCH (09:03)
[2023-12-29] MEDS: amLODIPine 5 MG Tab PO SCH (21:24)
[2023-12-29] MEDS: Sennosides/Docusate Sodium 50-8.6 MG Tab PO SCH (21:25)
[2023-12-29] MEDS: Zolpidem 5 MG Tab PO PRN (22:15)
[2023-12-30] MEDS: Pantoprazole 40 MG Tab.CR PO SCH (05:22)
[2023-12-30] MEDS: Levothyroxine 25 MCG Tab PO SCH (05:22)
[2023-12-30] MEDS: Lidocaine 5% 700 MG Patch TOP SCH (10:10)
[2023-12-30] MEDS: hydrALAZINE 25 MG Tab PO SCH (10:11)
[2023-12-30] MEDS: Clopidogrel 75 MG Tab PO SCH (10:12)
[2023-12-30] MEDS: tiZANidine 4 MG Tab PO SCH (10:12)
[2023-12-30] MEDS: Citalopram 20 MG Tab PO SCH (10:12)
[2023-12-30] MEDS: buPROPion 150 MG Tab.ER PO SCH (10:12)
[2023-12-30] MEDS: Gabapentin 100 MG Cap PO SCH (10:13)
[2023-12-30] MEDS: Hydrochlorothiazide/Triamterene 25-37.5 Tab PO SCH (10:13)
[2023-12-30] MEDS: Dexamethasone 4 MG Tab PO SCH (10:13)
[2023-12-30] MEDS: Acetaminophen/oxyCODONE 325-5 MG Tab PO PRN (10:20)
== END 2023-12-30 13:45 | disposition home or self-care (01) | DRG 948 ==
LOC: DL.MS 11:06 → UNDOADMIN 14:12
PROVIDERS: ADMIT Internal Medicine; ATTEND Internal Medicine
DX: R53.1 Weakness (principal); M54.9 Dorsalgia, unspecified; R53.81 Other malaise; I10 Essential (primary) hypertension; E78.5 Hyperlipidemia, unspecified; E03.9 Hypothyroidism, unspecified; Z96.653 Presence of artificial knee joint, bilateral; F32.9 Major depressive disorder, single episode, unspecified; H91.90 Unspecified hearing loss, unspecified ear; I25.10 Atherosclerotic heart disease of native coronary artery without angina pectoris; E78.00 Pure hypercholesterolemia, unspecified; K21.9 Gastro-esophageal reflux disease without esophagitis; F41.9 Anxiety disorder, unspecified; G89.29 Other chronic pain; M62.838 Other muscle spasm; D72.829 Elevated white blood cell count, unspecified; R73.9 Hyperglycemia, unspecified; I12.9 Hypertensive chronic kidney disease with stage 1 through stage 4 chronic kidney disease, or unspecified chronic kidney disease; N18.30 Chronic kidney disease, stage 3 unspecified; M19.90 Unspecified osteoarthritis, unspecified site; I25.2 Old myocardial infarction; Z86.73 Personal history of transient ischemic attack (TIA), and cerebral infarction without residual deficits; Z79.02 Long term (current) use of antithrombotics/antiplatelets; Z79.899 Other long term (current) drug therapy; Z90.710 Acquired absence of both cervix and uterus; Z87.891 Personal history of nicotine dependence; Z85.42 Personal history of malignant neoplasm of other parts of uterus
CPT/HCPCS: 94060; 94668; 94760; 97110-GP; 97116-GP; 97161-GP; 97165-GO; 97530-GO; 97530-GP; 97535-GO; A9270-GY; J8540

== ENCOUNTER 2025-02-20 14:51 | Emergency (ER) | payer MEDICARE, BC ==
[2025-02-20] MEDS ORDERED: Sodium Chloride 0.9% 10 ML Syringe FLUSH PRN (15:52)
[2025-02-20 16:02] LABS: BASOPHILS PERCENT AUTO 0.5 % (0.0-1.0); EOSINOPHILS PERCENT AUTO 7.4 % (1.0-3.0); HEMATOCRIT 39.4 % (37.0-47.0); MEAN CORPUSCULAR HEMOGLOBIN 31.3 pg (27.0-34.0); MEAN CORPUSCULAR VOLUME 94.9 fL (80-100); MONOCYTES PERCENT AUTO 5.8 % (2-8); NEUTROPHILS PERCENT AUTO 58.3 % (42.2-75.2); PLATELET COUNT,PLT 272 10^3/uL (150-450); RED BLOOD CELL COUNT 4.15 10^6/uL (4.2-5.4); WHITE BLOOD CELL COUNT,WBC 8.7 10^3/uL (5.0-10.0)
[2025-02-20 16:09] LABS: INR 0.9 (0.9-1.2); PROTHROMBIN TIME 9.7 SEC (9.0-12.0); PTT,PARTIAL THROMBOPLSTIN TIME 25.8 SEC (22.0-34.0)
[2025-02-20 16:16] LABS: LACTIC ACID 0.9 mmol/L (0.4-2.0)
[2025-02-20 16:18] LABS: A/G RATIO 1.2; ALANINE AMINOTRANSFERASE,ALT 27 U/L (14-59); ALBUMIN 4.1 g/dL (3.4-5.0); ALKALINE PHOSPHATASE 66 U/L (46-116); ANION GAP 12.4 mEq/L (7-13); ASPARTATE AMNIOTRANSFERASE,AST 16 U/L (15-37); BILIRUBIN TOTAL 0.6 mg/dL (0.2-1.0); BLOOD UREA NITROGEN,BUN 22 mg/dL (7-18); BUN/CREATININE RATIO 15.6 (No establ ref range); CALCIUM 9.8 mg/dL (8.5-10.1); CARBON DIOXIDE,CO2 28 mmol/L (21-32); CHLORIDE,CL 104 mmol/L (98-107); CREATININE 1.41 mg/dL (0.55-1.02); EST CRCL DRUG DOSING (CG) 32.15 mL/min; GLUCOSE RANDOM 108 mg/dL (70-99); MAGNESIUM 1.8 mg/dL (1.8-2.4); POTASSIUM,K 4.4 mmol/L (3.5-5.1); PROTEIN TOTAL,TP 7.6 g/dL (6.4-8.2); SODIUM,NA 140 mmol/L (136-145); TSH ULTRASENSITIVE 1.17 uIU/mL (0.36-3.74)
[2025-02-20 16:19] LABS: ESTIMATED GFR 37 mL/min (>=60)
[2025-02-20 16:20] LABS: C-REACTIVE PROTEIN < 0.50 ng/dL (<=0.50)
[2025-02-20 16:47] LABS: APPEARANCE,URINE CLEAR (CLEAR); BILIRUBIN,URINE NEGATIVE (NEGATIVE); COLOR,URINE YELLOW (YELLOW); GLUCOSE,URINE NEGATIVE (NEGATIVE); KETONES,URINE NEGATIVE (NEGATIVE); LEUKOCYTE ESTERASE,URINE SMALL (NEGATIVE); NITRITE,URINE NEGATIVE (NEGATIVE); OCCULT BLOOD,URINE TRACE-INTACT (NEGATIVE); PROTEIN,URINE NEGATIVE (NEGATIVE); UROBILINOGEN,URINE 0.2 mg/dL (0.2-1.0)
[2025-02-20 16:55] LABS: AMORPHOUS SEDIMENT,URINE FEW /HPF (NOT SEEN); BACTERIA,URINE FEW /HPF (0-FEW/HPF); EPITHELIAL CELLS,URINE RARE /HPF (NOT SEEN); MUCUS,URINE FEW /LPF (NOT SEEN); RBC,URINE 0-5 /HPF (0-5); WBC,URINE 0-5 /HPF (0-5/HPF)
[2025-02-20] MEDS: Sodium Chloride 0.9% 1,000 ML IV ONE (16:55)
[2025-02-20] MEDS: Meclizine 12.5 MG Tab PO ONE (18:27)
== END 2025-02-20 19:04 | disposition home or self-care (01) ==
LOC: DL.ED 14:51
DX: R42 Dizziness and giddiness (principal); E86.0 Dehydration; I25.10 Atherosclerotic heart disease of native coronary artery without angina pectoris; I10 Essential (primary) hypertension; K21.9 Gastro-esophageal reflux disease without esophagitis; E03.9 Hypothyroidism, unspecified; Z86.73 Personal history of transient ischemic attack (TIA), and cerebral infarction without residual deficits; Z79.890 Hormone replacement therapy; Z79.899 Other long term (current) drug therapy
CPT/HCPCS: 36415; 71045; 80053; 81001; 83605; 83735; 84443; 84484; 85025; 85610; 85730; 86140; 87086; 93005; 93010; 96360; 99284; A9270; J7030